=== PATIENT | female | born 1985 | race African-American/Black ===

== ENCOUNTER 2016-11-05 12:18 | Emergency (ER) | payer MEDICAID ==
[2016-11-05] MEDS ORDERED: ASPIRIN 81 MG TABLET, CHEWABLE PO ONE (12:48)
--- NOTE | 2016-11-05 12:53 | ER Document Report ---
ED Medical Screen (RME) - General Chief Complaint: Chest Pain Stated Complaint: CHEST PAIN Time Seen by Provider: 11/05/16 12:41 Notes: The patient is a 30-year-old female, past medical history bipolar, persistent tachycardia, ?Taki[place] arteritis?, presents with 2 days of left upper chest pain that is constant. She had a syncopal episode 2 days ago that lasted a few seconds. Denies fevers, shortness of breath, leg swelling, nausea, vomiting or numbness. PE: Tachycardic, Lungs CTAB, no leg swelling I have greeted and performed a rapid initial assessment of this patient. A comprehensive ED assessment and evaluation of the patient, analysis of test results and completion of the medical decision making process will be conducted by additional ED providers. TRAVEL OUTSIDE OF THE [place] IN LAST 30 DAYS: No - Related Data Allergies/Adverse Reactions: tramadol [Tramadol] Allergy (Verified 09/04/15 07:23) Past Medical History - Social History Frequency of alcohol use: None Drug Abuse: None - Past Medical History Cardiac Medical History: Reports: Hx Hypertension Renal/ Medical History: Reports: Hx Ovarian Cysts. Denies: Hx Peritoneal Dialysis Psychiatric Medical History: Reports: Hx Attention Deficit Hyperactivity Disorder, Hx Bipolar Disorder Past Surgical History: Reports: Hx Gynecologic Surgery - ovarian cyst removed - Immunizations Hx Diphtheria, Pertussis, Tetanus Vaccination: No Physical Exam - Vital signs Vitals: Temp Pulse Resp BP Pulse Ox 98.1 F 103 H 16 175/70 H 99 11/05/16 12:29 11/05/16 12:11/05/16 12:11/05/16 12:29 11/05/16 12:29 Course - Vital Signs Vital signs: Temp Pulse Resp BP Pulse Ox 98.1 F 103 H 16 175/70 H 99 11/05/16 12:29 11/05/16 12:29 11/05/16 12:29 11/05/16 12:29 11/05/16 12:29
[2016-11-05 13:13] LABS: ABSOLUTE BASOPHILS # (AUTO) 0.1 10^3/uL (0.0-0.2); ABSOLUTE LYMPHOCYTES (AUTO) 3.2 10^3/uL (0.5-4.7); ABSOLUTE MONOCYTES (AUTO) 0.7 10^3/uL (0.1-1.4); BASOPHILS % (AUTO) 0.7 % (0-2); EOSINOPHILS % (AUTO) 0.2 % (0-6); HEMATOCRIT 32.2 % (36.0-47.0); HEMOGLOBIN 10.7 g/dL (12.0-15.5); HGB HCT DIFFERENCE -0.1; LYMPHOCYTES % (AUTO) 40.3 % (13-45); MEAN CORPUSCULAR HEMOGLOBIN 28.7 pg (27.0-33.4); MEAN CORPUSCULAR HGB CONC 33.3 g/dL (32.0-36.0); MEAN CORPUSCULAR VOLUME 86 fl (80-97); MONOCYTES % (AUTO) 8.9 % (3-13); RED BLOOD COUNT 3.74 10^6/uL (3.72-5.28); RED CELL DISTRIBUTION WIDTH 14.3 % (11.5-14.0); SEGMENTED NEUTROPHILS % (AUTO) 49.9 % (42-78)
--- NOTE | 2016-11-05 13:34 | RADIOLOGY REPORT (SQ) ---
EXAM DESCRIPTION: CHEST PA/LAT COMPLETED DATE/TIME: 11/05/2016 1:18 pm REASON FOR STUDY: chest pain COMPARISON: None. TECHNIQUE: Frontal and lateral radiographic views of the chest acquired. NUMBER OF VIEWS: Two view. LIMITATIONS: None. FINDINGS: LUNGS AND PLEURA: No opacities, masses or pneumothorax. No pleural effusion. MEDIASTINUM AND HILAR STRUCTURES: No masses or contour abnormalities. HEART AND VASCULAR STRUCTURES: Heart normal size. No evidence for failure. BONES: No acute findings. HARDWARE: None in the chest. OTHER: No other significant finding. IMPRESSION: NO SIGNIFICANT RADIOGRAPHIC FINDING IN THE CHEST. TECHNICAL DOCUMENTATION: JOB ID: [id number] [employer]- All Rights Reserved
[2016-11-05 13:43] LABS: ALANINE AMINOTRANSFERASE 27 U/L (9-52); ALBUMIN 4.7 g/dL (3.5-5.0); ALKALINE PHOSPHATASE 69 U/L (38-126); ANION GAP 19 (5-19); ASPARTATE AMINO TRANSFERASE 36 U/L (14-36); BILIRUBIN,DIRECT 0.4 mg/dL (0.0-0.4); BILIRUBIN,TOTAL 0.6 mg/dL (0.2-1.3); BLOOD UREA NITROGEN 7 mg/dL (7-20); CALCIUM 9.7 mg/dL (8.4-10.2); CARBON DIOXIDE 20 mmol/L (22-30); CHLORIDE 104 mmol/L (98-107); CREATINE KINASE 964 U/L (30-135); CREATININE RESULT 0.64 mg/dL (0.52-1.25); GLUCOSE 76 mg/dL (75-110); LIPASE 73.4 U/L (23-300); POTASSIUM 3.2 mmol/L (3.6-5.0); SODIUM 142.7 mmol/L (137-145); TOTAL PROTEIN 9.5 g/dL (6.3-8.2)
[2016-11-05 13:55] LABS: TROPONIN I < 0.012 ng/mL
--- NOTE | 2016-11-05 14:02 | ER Document Report ---
ED General - General Chief Complaint: Chest Pain Stated Complaint: CHEST PAIN Time Seen by Provider: 11/05/16 12:41 Mode of Arrival: Ambulatory Information source: Patient Notes: 30 yo female non smoker, vapes, no drugs, no elcohol, non hormone user, non htn , non dm, normal weight, non hyperlipidemic c/o presycopal episode on friday at 6 pm, felt lightheaded, about to pass out, saw spots, blackness, couldn't breath , chest was tight up into her throat, throat got tight, legs got heavy-friends caught her and sat her in the car, put seat back down, elevated legs. put cold towel around head and neck, chest. 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 garcia sending her to hotel reservationist (no eval yet), and to rhuematologist- Lion, for takayasu arteritis. c/o constant retrosternal central to left chest pain radiates into upper left back and left arm since waking up on friday, still present, no change with the aspirin. Dizzy episodes when she gets up or in the evening daily. FMHx: no CAD, HTN, or DM. Surgeries: one oophorectomy for ovarian cyst. No cough or fever. Symptoms started long after she had already been on restoril, ritalin, prazosin (nightly) , buspar and topomax. New rx Vraylar, no change in symptoms.She is supposed to have a echocardiogram and holter monitor but her medical insurance won't pay for all of it. TRAVEL OUTSIDE OF THE [place] IN LAST 30 DAYS: No - Related Data Allergies/Adverse Reactions: tramadol [Tramadol] Allergy (Verified 09/04/15 07:23) Past Medical History - General Information source: Patient - Social History Smoking Status: Never Smoker Frequency of alcohol use: None Drug Abuse: None Lives with: Family Family History: Reviewed & Not Pertinent Patient has suicidal ideation: No Patient has homicidal ideation: No - Past Medical History Cardiac Medical History: Reports: Hx Hypertension Renal/ Medical History: Reports: Hx Ovarian Cysts. Denies: Hx Peritoneal Dialysis Psychiatric Medical History: Reports: Hx Attention Deficit Hyperactivity Disorder, Hx Bipolar Disorder Past Surgical History: Reports: Hx Gynecologic Surgery - oophorectomy for ovarian cyst - Immunizations Hx Diphtheria, Pertussis, Tetanus Vaccination: No Review of Systems - Review of Systems Constitutional: No symptoms reported EENT: No symptoms reported Cardiovascular: See HPI Respiratory: No symptoms reported Gastrointestinal: No symptoms reported Genitourinary: No symptoms reported Female Genitourinary: No symptoms reported Musculoskeletal: No symptoms reported Skin: No symptoms reported Hematologic/Lymphatic: No symptoms reported Neurological/Psychological: See HPI Physical Exam - Vital signs Vitals: Temp Pulse Resp BP Pulse Ox 98.1 F 103 H 16 175/70 H 99 11/05/16 12:29 11/05/16 12:29 11/05/16 12:29 11/05/16 12:29 11/05/16 12:29 Interpretation: Normal - General General appearance: Appears well, Alert In distress: None - HEENT Head: Normocephalic, Atraumatic Eyes: Normal Pupils: PERRL Pharynx: Normal Neck: Supple. No: Lymphadenopathy, Thyromegally - Respiratory Respiratory status: No respiratory distress Chest status: Nontender Breath sounds: Normal Chest palpation: Normal - Cardiovascular Rhythm: Regular Heart sounds: Normal auscultation Murmur: No Notes: pulse to 102 when stands at bedside, some dizziness, no nystagmus - Abdominal Inspection: Normal Distension: No distension Bowel sounds: Normal Tenderness: Nontender. No: Tender Organomegaly: No organomegaly - Back Back: Normal, Nontender. No: CVA tenderness - Extremities General upper extremity: Normal inspection, Nontender, Normal color, Normal ROM , Normal temperature General lower extremity: Normal inspection, Nontender, Normal color, Normal ROM , Normal temperature, Normal weight bearing. No: Chloe's sign - Neurological Neuro grossly intact: Yes Cognition: Normal Orientation: AAOx4 Shola Coma Scale Eye Opening: Spontaneous Shola Coma Scale Verbal: Oriented [place] Coma Scale Motor: Obeys Commands [place] Coma Scale Total: 15 Speech: Normal Motor strength normal: LUE, RUE, LLE, RLE Sensory: Normal - Psychological Associated symptoms: Normal affect, Normal mood, Tearful - scared - Skin Skin Temperature: Warm Skin Moisture: Dry Skin Color: Normal Skin irregularity: negative: Rash Course - Re-evaluation Re-evalutation: 11/05/16 14:03 pt has trouble swallowing pills, offered her liquid potassium. 11/05/16 16:03 no Changge in her symptoms with IV fluid. She still feels fatigued with dizziness and left-sided retrosternal chest pain that has not changed and has been constant since it started. 11/05/16 16:18 Up to bathroom without dizziness for urinalysis. test is negative, troponin, BNP is negative 11/05/16 17:[address] prince, pt can go home with cardiology referral. 11/05/16 17:59 We will treat for possible gonorrhea and chlamydia pending the STD urinalysis result. 11/05/16 18:09 pt has 1 year history of decreased pulse in left wrist causing lower blood pressures in the left arm, her MD is aware and the cabinet professional as well. BP left arm 103/80 with 1+ radial pulse, 175/85 with 2+ radial pulse, 2+ bilateral DP. dr. prince aware, since it has been that way for a year, she can still f/u with her MD and hotel reservationist. - Vital Signs Vital signs: Temp Pulse Resp BP Pulse Ox 98.1 F 103 H 20 95/76 L 100 11/05/16 12:29 11/05/16 12:29 11/05/16 17:01 11/05/16 17:00 11/05/16 16:00 - Laboratory Result Diagrams: 11/05/16 13:00 11/05/16 13:00 Laboratory results interpreted by me: 11/05/16 11/05/16 11/05/16 13:00 13:00 16:07 Hgb 10.7 L Hct 32.2 L RDW 14.3 H Potassium 3.2 L Carbon Dioxide 20 L Creatine Kinase 964 H Total Protein 9.5 H Urine Protein 30 H Urine Ketones 80 H Urine Blood SMALL H Ur Leukocyte Esterase SMALL H - EKG Interpretation by Me EKG shows normal: Sinus rhythm Rate: Normal Rhythm: NSR When compared to previous EKG there are: No significant change Discharge - Discharge Clinical Impression: chronic anemia, hypokalemia, Dizziness, Trichomoniasis Chest pain Qualifiers: Chest pain type: unspecified Qualified Code(s): R07.9 - Chest pain, unspecified Condition: Stable Disposition: HOME, SELF-CARE Instructions: Chest Pain of Unclear Cause ([facility]), Hypokalemia ([facility]), Anemia ([facility] ), Dizziness ([facility]), Trichomonas Infection ([facility]), Metronidazole ([facility]), Rocephin ( [facility]), Azithromycin ([facility]) Additional Instructions: eat a banana daily see the hotel reservationist and get the echocardiogram and holter monitor that your provider wants you to have to er if worse call tomorrow for the gonorrhea and chlamydia std test result multivitamin daily partner needs tx for trichomonis infection Please complete the patient satisfaction survey if you get one, and return it.. If you do not receive a survey, then you can go to the [facility] website, [email or web address] and place your comments about your very good care. Thank you very much. It was a pleasure being your medical provider today. Referrals: YOUSUF HARMAN MD [EMERITUS] - 11/06/16
[2016-11-05] MEDS ORDERED: POTASSIUM CHLORIDE 20 MEQ/15 ML UDCUP PO ONE (14:21)
[2016-11-05] MEDS ORDERED: NORMAL SALINE 1000 ML 1,000 ML IV ONE (14:46)
[2016-11-05 16:33] LABS: APPEARANCE,URINE SLIGHTLY-CLOUDY; BILIRUBIN,URINE NEGATIVE (NEGATIVE); GLUCOSE, URINE NEGATIVE (NEGATIVE); KETONES,URINE 80 mg/dL (NEGATIVE); LEUKOCYTE ESTERASE,URINE SMALL (NEGATIVE); NITRITE,URINE NEGATIVE (NEGATIVE); PROTEIN,URINE 30 mg/dL (NEGATIVE); URINE SPECIFIC GRAVITY 1.013; UROBILINOGEN,URINE NEGATIVE mg/dL (<2.0)
[2016-11-05 16:37] LABS: TRICHOMONAS, URINE PRESENT /HPF
[2016-11-05] MEDS ORDERED: ONDANSETRON 4 MG TAB.RAPDIS PO ONE (16:39)
[2016-11-05] MEDS ORDERED: METRONIDAZOLE 500 MG TABLET PO ONE (16:39)
[2016-11-05] MEDS ORDERED: AZITHROMYCIN 250 MG TABLET PO ONE (17:54)
[2016-11-05] MEDS ORDERED: CEFTRIAXONE INJ 250 MG VIAL IM ONE (17:54)
[2016-11-05 18:19] VITALS: BP 151/81
[2016-11-05 18:47] LABS: CHLAM PCR NOT DETECTED (NOT DETECT)
--- NOTE | 2016-11-05 20:28 | EKG REPORT ---
SEVERITY:- BORDERLINE ECG - SINUS RHYTHM PROBABLE LEFT ATRIAL ABNORMALITY : Confirmed by: Seth Mccarty MD 05-Nov-2016 20:27:34
== END 2016-11-05 18:19 | disposition home or self-care (01) ==
LOC: ER 12:18
DX: R55 Syncope and collapse (principal); R07.89 Other chest pain; D64.9 Anemia, unspecified; E87.6 Hypokalemia; A59.9 Trichomoniasis, unspecified; R13.10 Dysphagia, unspecified; M31.4 Aortic arch syndrome [Takayasu]; I10 Essential (primary) hypertension; F90.9 Attention-deficit hyperactivity disorder, unspecified type; F31.9 Bipolar disorder, unspecified; Z79.899 Other long term (current) drug therapy; Z88.5 Allergy status to narcotic agent; R53.83 Other fatigue
CPT/HCPCS: 93005; 99285; 96372; 96360; 36415; 87086; 82550; 83690; 84703; 85025; 80053; 81001; 84484; 87491; 87591; 83880; 71020; 93010; Q0144; S0119; J3490 ×2; J7030; J0696

== ENCOUNTER 2017-03-26 11:23 | Emergency (ER) | payer OTHER ==
--- NOTE | 2017-03-26 11:46 | ER Document Report ---
ED General - General Chief Complaint: Dizziness Stated Complaint: DIZZINESS Time Seen by Provider: 03/26/17 11:40 Mode of Arrival: Ambulatory Information source: Patient Notes: 31-year-old female history of tachycardia presents with complaints of palpitations not feeling well feel dizzy lightheaded. Patient was concerned her blood pressure low at 110/52 TRAVEL OUTSIDE OF THE [place] IN LAST 30 DAYS: No - HPI Onset: Other Onset/Duration: Intermittent Quality of pain: No pain Severity: Mild Pain Level: Denies Associated symptoms: Other Exacerbated by: Denies Relieved by: Denies Similar symptoms previously: Yes Recently seen / treated by doctor: Yes - Patient has had recent echo and recent Holter monitor by cardiology - Related Data Allergies/Adverse Reactions: tramadol [Tramadol] Allergy (Verified 09/04/15 07:23) Past Medical History - Social History Smoking Status: Never Smoker Cigarette use (# per day): No Chew tobacco use (# tins/day): No Smoking Education Provided: No Frequency of alcohol use: None Drug Abuse: None Family History: Reviewed & Not Pertinent Patient has suicidal ideation: No Patient has homicidal ideation: No - Past Medical History Cardiac Medical History: Reports: Hx Hypertension Renal/ Medical History: Reports: Hx Ovarian Cysts. Denies: Hx Peritoneal Dialysis Psychiatric Medical History: Reports: Hx Attention Deficit Hyperactivity Disorder, Hx Bipolar Disorder Past Surgical History: Reports: Hx Gynecologic Surgery - oophorectomy for ovarian cyst - Immunizations Hx Diphtheria, Pertussis, Tetanus Vaccination: No Review of Systems - Review of Systems Notes: REVIEW OF SYSTEMS: CONSTITUTIONAL : Denies fever, chills, or sweats. Denies recent illness. EENT: Denies eye, ear, throat, or mouth pain or symptoms. Denies nasal or sinus congestion or discharge. Denies throat, tongue, or mouth swelling or difficulty swallowing. CARDIOVASCULAR: Admits to palpitations RESPIRATORY: Denies cough, cold, or chest congestion. Denies shortness of breath, difficulty breathing, or wheezing. GASTROINTESTINAL: Denies abdominal pain or distention. Denies nausea, vomiting , or diarrhea. Denies blood in vomitus, stools, or per rectum. Denies black, tarry stools. Denies constipation. GENITOURINARY: Denies difficulty urinating, painful urination, burning, frequency, blood in urine, or discharge. FEMALE GENITOURINARY: Denies vaginal bleeding, heavy or abnormal periods, irregular periods. Denies vaginal discharge or odor. MUSCULOSKELETAL: Denies back or neck pain or stiffness. Denies joint pain or swelling. SKIN: Denies rash, lesions or sores. HEMATOLOGIC : Denies easy bruising or bleeding. LYMPHATIC: Denies swollen, enlarged glands. NEUROLOGICAL: Admits to dizziness PSYCHIATRIC: Denies anxiety or stress. Denies depression, suicidal ideation, or homicidal ideation. ALL OTHER SYSTEMS REVIEWED AND NEGATIVE. PHYSICAL EXAMINATION: GENERAL: Well-appearing, well-nourished and in no acute distress. HEAD: Atraumatic, normocephalic. EYES: Pupils equal round and reactive to light, extraocular movements intact, conjunctiva are normal. ENT: Nares patent, oropharynx clear without exudates. Moist mucous membranes. NECK: Normal range of motion, supple without lymphadenopathy LUNGS: Breath sounds clear to auscultation bilaterally and equal. No wheezes rales or rhonchi. HEART: Tachycardia which patient states is her baseline ABDOMEN: Soft, nontender, nondistended abdomen. No guarding, no rebound. No masses appreciated. Female : deferred Musculoskeletal: Normal range of motion, no pitting or edema. No cyanosis. NEUROLOGICAL: Cranial nerves grossly intact. Normal speech, normal gait. Normal sensory, motor exams PSYCH: Normal mood, normal affect. SKIN: Warm, Dry, normal turgor, no rashes or lesions noted. Dictation was performed using [employer] voice recognition software Physical Exam - Vital signs Vitals: Temp Pulse Resp BP Pulse Ox 98.3 F 122 H 20 164/77 H 98 03/26/17 11:24 03/26/17 11:24 03/26/17 11:24 03/26/17 11:24 03/26/17 11:24 Course - Re-evaluation Re-evalutation: 03/26/17 13:37 pts heart rate improved to 103 on its own while i was in the room, pt overall looks well is in no distress, she has had a significant work up and has been normal by cardiology, no tsh has been ordered i nthe past and i did check this which was normal I will dc home with follow up with cardio After performing a Medical Screening Examination, I estimate there is LOW risk for INTRACRANIAL HEMORRHAGE, ISCHEMIC CVA, MALIGNANT DYSRHYTHMIA, ACUTE CORONARY SYNDROME, MENINGITIS, PULMONARY EMBOLISM, or SEPSIS thus I consider the discharge disposition reasonable. I have reevaluated this patient multiple times and no significant life threatening changes are noted. The patient and I have discussed the diagnosis and risks, and we agree with discharging home with close follow-up with the understanding that symptoms and presentations can change. We also discussed returning to the Emergency Department immediately if new or worsening symptoms occur. We have discussed the symptoms which are most concerning (e.g., changing or worsening pain, weakness, vomiting, fever) that necessitate immediate return. - Vital Signs Vital signs: Temp Pulse Resp BP Pulse Ox 98.3 F 110 H 20 164/77 H 98 03/26/17 11:25 03/26/17 11:41 03/26/17 11:24 03/26/17 11:25 03/26/17 11:41 - Laboratory Result Diagrams: 03/26/17 12:00 03/26/17 12:00 Laboratory results interpreted by me: 03/26/17 03/26/17 12:00 12:00 RDW 14.2 H Plt Count 472 H Sodium 146.3 H Carbon Dioxide 21 L Total Protein 9.6 H Discharge - Discharge Clinical Impression: Dizziness, Tachycardia Condition: Stable Disposition: HOME, SELF-CARE Instructions: Sinus Tachycardia ([facility]) Additional Instructions: Follow up with your physician tomorrow for further care or return to the ED IMMEDIATELY if symptoms worsen or new concerns occur. If you cannot afford to follow up with your primary care physician a list of low cost clinics have been provided at the end of your discharge papers as well.
[2017-03-26 12:07] LABS: ABSOLUTE BASOPHILS # (AUTO) 0.1 10^3/uL (0.0-0.2); ABSOLUTE LYMPHOCYTES (AUTO) 3.5 10^3/uL (0.5-4.7); ABSOLUTE MONOCYTES (AUTO) 0.5 10^3/uL (0.1-1.4); BASOPHILS % (AUTO) 1.3 % (0-2); EOSINOPHILS % (AUTO) 0.3 % (0-6); HEMATOCRIT 36.6 % (36.0-47.0); HEMOGLOBIN 12.5 g/dL (12.0-15.5); HGB HCT DIFFERENCE 0.9; LYMPHOCYTES % (AUTO) 43.4 % (13-45); MEAN CORPUSCULAR HEMOGLOBIN 29.4 pg (27.0-33.4); MEAN CORPUSCULAR HGB CONC 34.2 g/dL (32.0-36.0); MEAN CORPUSCULAR VOLUME 86 fl (80-97); MONOCYTES % (AUTO) 5.8 % (3-13); RED BLOOD COUNT 4.26 10^6/uL (3.72-5.28); RED CELL DISTRIBUTION WIDTH 14.2 % (11.5-14.0); SEGMENTED NEUTROPHILS % (AUTO) 49.2 % (42-78); WHITE BLOOD COUNT 8.1 10^3/uL (4.0-10.5)
[2017-03-26 12:43] LABS: ALANINE AMINOTRANSFERASE 27 U/L (9-52); ALBUMIN 4.9 g/dL (3.5-5.0); ALKALINE PHOSPHATASE 75 U/L (38-126); ANION GAP 18 (5-19); ASPARTATE AMINO TRANSFERASE 20 U/L (14-36); BILIRUBIN,DIRECT 0.3 mg/dL (0.0-0.4); BILIRUBIN,TOTAL 0.4 mg/dL (0.2-1.3); BLOOD UREA NITROGEN 18 mg/dL (7-20); CALCIUM 9.5 mg/dL (8.4-10.2); CARBON DIOXIDE 21 mmol/L (22-30); CHLORIDE 107 mmol/L (98-107); CREATININE RESULT 0.74 mg/dL (0.52-1.25); GLUCOSE 89 mg/dL (75-110); SODIUM 146.3 mmol/L (137-145); TOTAL PROTEIN 9.6 g/dL (6.3-8.2)
[2017-03-26 12:59] LABS: FREE T3 4.06 pg/mL (2.77-5.27)
[2017-03-26 13:13] LABS: THYROID STIMULATING HORMONE 2.08 uIU/mL (0.47-4.68)
[2017-03-26 13:54] VITALS: BP 140/65
--- NOTE | 2017-03-26 19:41 | EKG REPORT ---
SEVERITY:- ABNORMAL ECG - SINUS TACHYCARDIA PROBABLE LEFT VENTRICULAR HYPERTROPHY : Confirmed by: Brynn Chung MD 26-Mar-2017 19:40:47
== END 2017-03-26 13:45 | disposition home or self-care (01) ==
LOC: ER 11:23
DX: R42 Dizziness and giddiness (principal); R00.0 Tachycardia, unspecified
CPT/HCPCS: 36415; 80053; 84439; 84443; 84481; 85025; 93005; 93010; 99284

== ENCOUNTER 2018-04-02 15:55 | Emergency (ER) | payer OTHER ==
[2018-04-02] MEDS ORDERED: NORMAL SALINE 1000 ML 1,000 ML IV ONE (16:39)
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
--- NOTE | 2018-04-02 19:13 | RADIOLOGY REPORT (SQ) ---
EXAM DESCRIPTION: CT HEAD WITHOUT COMPLETED DATE/TIME: 04/02/2018 6:59 pm REASON FOR STUDY: headache dizziness nausea COMPARISON: 09/04/2015 TECHNIQUE: Axial images acquired through the brain without intravenous contrast. Images reviewed wi th bone, brain and subdural windows. Additional sagittal and coronal reconstructions were generated. Images stored on PACS. All CT scanners at this facility use dose modulation, iterative reconstruction, and/or weight based d osing when appropriate to reduce radiation dose to as low as reasonably achievable (ALARA). [facility]: Dose Right [facility]: CareDose [facility]: Dose Right [facility]: Teradose 4D [facility]: Smart Discovery Machine RADIATION DOSE: CT Rad equipment meets quality standard of care and radiation dose reduction techniq ues were employed. CTDIvol: 53.2 mGy. DLP: 1044 mGy-cm. mGy. LIMITATIONS: None. FINDINGS: VENTRICLES: Normal size and contour. CEREBRUM: No masses. No hemorrhage. No midline shift. No evidence for acute infarction. Normal gra y/white matter differentiation. No areas of low density in the white matter. CEREBELLUM: No masses. No hemorrhage. No alteration of density. No evidence for acute infarction. EXTRAAXIAL SPACES: No fluid collections. No masses. ORBITS AND GLOBE: No intra- or extraconal masses. Normal contour of globe without masses. CALVARIUM: No fracture. PARANASAL SINUSES: No fluid or mucosal thickening. SOFT TISSUES: No mass or hematoma. OTHER: No other significant finding. IMPRESSION: NORMAL BRAIN CT WITHOUT CONTRAST. EVIDENCE OF ACUTE STROKE: NO. COMMENT: Quality ID # [id number]: Final reports with documentation of one or more dose reduction techniques (e.g., Automated exposure control, adjustment of the mA and/or kV according to patient size, use of iterative reconstruction technique) TECHNICAL DOCUMENTATION: JOB ID: [id number] [employer]- All Rights Reserved Reading location - IP/workstation name: [email or web address]
[2018-04-02 19:16] LABS: APPEARANCE,URINE SLIGHTLY-CLOUDY; BILIRUBIN,URINE NEGATIVE (NEGATIVE); COLOR,URINE YELLOW; GLUCOSE, URINE NEGATIVE (NEGATIVE); KETONES,URINE TRACE mg/dL (NEGATIVE); LEUKOCYTE ESTERASE,URINE NEGATIVE (NEGATIVE); NITRITE,URINE NEGATIVE (NEGATIVE); PROTEIN,URINE NEGATIVE (NEGATIVE); URINE SPECIFIC GRAVITY 1.011; UROBILINOGEN,URINE NEGATIVE mg/dL (<2.0)
[2018-04-02 19:39] LABS: URINE AMPHETAMINES SCREEN UNCONFIRMED POSITIVE; URINE BARBITURATES SCREEN NEGATIVE; URINE BENZODIAZEPINES SCREEN NEGATIVE; URINE COCAINE SCREEN NEGATIVE; URINE MARIJUANA (THC) SCREEN NEGATIVE; URINE METHADONE SCREEN NEGATIVE; URINE PHENCYCLIDINE SCREEN NEGATIVE
[2018-04-02 19:52] LABS: ABSOLUTE BASOPHILS # (AUTO) 0.1 10^3/uL (0.0-0.2); ABSOLUTE LYMPHOCYTES (AUTO) 4.1 10^3/uL (0.5-4.7); ABSOLUTE MONOCYTES (AUTO) 0.3 10^3/uL (0.1-1.4); ABSOLUTE NEUT (AUTO) 3.6 10^3/uL (1.7-8.2); BASOPHILS % (AUTO) 1.1 % (0-2); EOSINOPHILS % (AUTO) 0.5 % (0-6); HEMATOCRIT 32.9 % (36.0-47.0); HEMOGLOBIN 11.1 g/dL (12.0-15.5); LYMPHOCYTES % (AUTO) 50.5 % (13-45); MEAN CORPUSCULAR HEMOGLOBIN 28.8 pg (27.0-33.4); MEAN CORPUSCULAR HGB CONC 33.7 g/dL (32.0-36.0); MEAN CORPUSCULAR VOLUME 86 fl (80-97); PLATELET COUNT 396 10^3/uL (150-450); RED BLOOD COUNT 3.85 10^6/uL (3.72-5.28); RED CELL DISTRIBUTION WIDTH 14.9 % (11.5-14.0); SEGMENTED NEUTROPHILS % (AUTO) 43.9 % (42-78); TOTAL CELLS COUNTED % (AUTO) 100 %; WHITE BLOOD COUNT 8.2 10^3/uL (4.0-10.5)
[2018-04-02 20:13] LABS: ALANINE AMINOTRANSFERASE 16 U/L (9-52); ALBUMIN 4.6 g/dL (3.5-5.0); ALKALINE PHOSPHATASE 53 U/L (38-126); ANION GAP 12 (5-19); ASPARTATE AMINO TRANSFERASE 26 U/L (14-36); BILIRUBIN,DIRECT 0.4 mg/dL (0.0-0.4); BILIRUBIN,TOTAL 0.6 mg/dL (0.2-1.3); BLOOD UREA NITROGEN 8 mg/dL (7-20); CALCIUM 9.1 mg/dL (8.4-10.2); CARBON DIOXIDE 29 mmol/L (22-30); CHLORIDE 101 mmol/L (98-107); GLUCOSE 76 mg/dL (75-110); POTASSIUM 3.3 mmol/L (3.6-5.0); SODIUM 142.3 mmol/L (137-145); TOTAL PROTEIN 8.6 g/dL (6.3-8.2)
[2018-04-02 20:23] VITALS: BP 148/69
== END 2018-04-02 21:14 | disposition home or self-care (01) ==
LOC: ER 15:55
DX: R42 Dizziness and giddiness (principal); R51 Headache; I10 Essential (primary) hypertension; F90.1 Attention-deficit hyperactivity disorder, predominantly hyperactive type; F31.9 Bipolar disorder, unspecified; M54.2 Cervicalgia; M79.601 Pain in right arm; M79.602 Pain in left arm; M79.604 Pain in right leg; M79.605 Pain in left leg; V43.52XA Car driver injured in collision with other type car in traffic accident, initial encounter; Y92.410 Unspecified street and highway as the place of occurrence of the external cause
CPT/HCPCS: 36415; 70450; 80053; 80307; 81001; 81025; 85025; 96372; 99284

== ENCOUNTER 2018-06-09 18:16 | Emergency (ER) | payer SELFPAY ==
[2018-06-09] MEDS ORDERED: TETRACAINE HCL 0.5% OPH SOLN 4 ML OU ONE (18:39)
[2018-06-09] MEDS ORDERED: POLYMYXIN B SULFATE/TMP OPH SOLN (10 ML/ER DISP) OD ONE (22:23)
--- NOTE | 2018-06-09 22:27 | ER Document Report ---
HPI - HPI Patient complains to provider of: Eye pain Time Seen by Provider: 06/09/18 18:38 Pain Level: 5 Context: 32-year-old female with no past medical history presents to the emergency department after gluing her R eyelid shuT getting eyelashes. She states at the business where it was done they applied something to her eyes and it was still shot. At one point she said her eyeball was entrapped by glue. She went home and tried to put nail estonian remover on it and then return to the nail shop they would put some more of the material on it. She then came to the emergency department. She complains of severe eye pain, blurred vision, and pain with eye movement. - CONSTITUTIONAL Constitutional: DENIES: Fever, Chills - EENT EENT: REPORTS: Eye problems - right eye - REPRODUCTIVE Reproductive: DENIES: : Past Medical History - Social History Smoking Status: Never Smoker Frequency of alcohol use: None Drug Abuse: None Family History: Reviewed & Not Pertinent Patient has suicidal ideation: No Patient has homicidal ideation: No - Past Medical History Cardiac Medical History: Reports: Hx Atrial Fibrillation, Hx Hypertension Renal/ Medical History: Reports: Hx Ovarian Cysts. Denies: Hx Peritoneal Dialysis Psychiatric Medical History: Reports: Hx Attention Deficit Hyperactivity Disorder, Hx Bipolar Disorder Past Surgical History: Reports: Hx Gynecologic Surgery - oophorectomy for ovarian cyst - Immunizations Hx Diphtheria, Pertussis, Tetanus Vaccination: No Vertical Provider Document - CONSTITUTIONAL Agree With Documented VS: Yes Notes: PHYSICAL EXAMINATION: Reviewed vital signs and charting by RN GENERAL: Alert, interacts well. No acute distress. HEAD: Normocephalic, atraumatic. EYES: Pupils equal, round, and reactive to light. Extraocular movements intact. Right eye erythematous. Floor seen stain uptake at the 3 o'clock position of the right eye approximately 2 mm x 2 mm. Floor seen uptake in the medial inferior aspect of the right eye. ENT: Oral mucosa moist, tongue midline. NECK: Full range of motion. Supple. Trachea midline. EXTREMITIES: Moves all 4 extremities spontaneously. No edema, No cyanosis. NEUROLOGICAL: Alert and oriented. Normal speech. PSYCH: Normal affect, normal mood. SKIN: Warm, dry, normal turgor. No rashes or lesions noted. - INFECTION CONTROL TRAVEL OUTSIDE OF THE [place] IN LAST 30 DAYS: No - HEENT HEENT: Atraumatic Course - Re-evaluation Re-evalutation: 06/09/18 23:23 Well-appearing 32-year-old female presents with a corneal abrasion to 6 mm x 2 mm at the 3 o'clock position. Corneal injection also noted. Right eye was irrigated copiously and lid was everted which did not reveal any residual acrylic. 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 Plan is to place her on Polytrim drops OD 4 times per day for 5 days. Patient will get an ophthalmology consult from the emergency department. Patient is safe and stable for discharge with close ophthalmology follow-up. 06/10/18 01:41 06/10/18 01:41 - Vital Signs Vital signs: Temp Pulse Resp BP Pulse Ox 98.4 F 89 16 160/68 H 99 06/09/18 18:32 06/09/18 18:32 06/09/18 18:32 06/09/18 18:32 06/09/18 18:32 Discharge - Discharge Clinical Impression: Right corneal abrasion Qualifiers: Encounter type: initial encounter Qualified Code(s): S05.01XA - Injury of conjunctiva and corneal abrasion without foreign body, right eye, initial encounter Condition: Good Disposition: HOME, SELF-CARE Instructions: Corneal Abrasion ([facility]) Additional Instructions: You have a corneal abrasion. This should improve in the next several days. You should apply the eye drops to the affected eye 3 times daily. Follow-up with ophthalmology at your earliest ability. Return if you have decreased vision, worsening pain, increased drainage from the eye, you notice redness or puffiness around the eye, you develop a fever greater than 101F, or you have any other symptoms that are concerning to you. Referrals: LISS ÁLVAREZ MD [Primary Care Provider] - Follow up as needed JOSE ENRIQUE LICONA MD [ACTIVE STAFF] - Follow up as needed
[2018-06-10 00:05] VITALS: BP 158/64
== END 2018-06-09 23:59 | disposition home or self-care (01) ==
LOC: ER 18:16
DX: S05.01XA Injury of conjunctiva and corneal abrasion without foreign body, right eye, initial encounter (principal); X58.XXXA Exposure to other specified factors, initial encounter; I10 Essential (primary) hypertension
CPT/HCPCS: 99282; J3490 ×2

== ENCOUNTER → 2018-07-17 | Outpatient (CLI) | payer MEDICAID ==
--- NOTE | 2018-07-17 12:18 | RADIOLOGY REPORT (SQ) ---
EXAM DESCRIPTION: T SPINE AP/LAT COMPLETED DATE/TIME: 07/17/2018 11:48 am REASON FOR STUDY: DORSALGIA, UNSPECIFIED M54.9 DORSALGIA, UNSPECIFIED COMPARISON: 02/24/2014 NUMBER OF VIEWS: Two views. TECHNIQUE: AP and lateral radiographic images acquired of the thoracic spine. LIMITATIONS: None. FINDINGS: MINERALIZATION: Normal. ALIGNMENT: Normal. No scoliosis. VERTEBRAE: No fracture or bone lesion. Maintained height, normal segmentation. DISCS: No significant loss of height or significant narrowing. No large osteophytes. HARDWARE: None in the spine. MEDIASTINUM AND SOFT TISSUES: Normal heart size and aortic contour. No soft tissue abnormality. VISUALIZED LUNG SIMMONS: Clear. OTHER: No other significant finding. IMPRESSION: 1. No significant interval changes since the previous examination dated 02/24/2014. No acute osseous findings. TECHNICAL DOCUMENTATION: JOB ID: [id number] [employer]- All Rights Reserved Reading location - IP/workstation name: [email or web address]
== END ==
LOC: OD 11:23
PROVIDERS: ATTEND Nurse Practitioner Family
DX: M54.9 Dorsalgia, unspecified (principal)
CPT/HCPCS: 72070

== ENCOUNTER → 2019-01-19 | Outpatient (CLI) | payer MEDICAID ==
--- NOTE | 2019-01-19 11:34 | RADIOLOGY REPORT (SQ) ---
EXAM DESCRIPTION: LUMBAR SPINE COMPLETE COMPLETED DATE/TIME: 01/19/2019 11:22 am REASON FOR STUDY: PAIN OF FINGER OF RT HAND M54.41 LUMBAGO WITH SCIATICA, RIGHT SIDE M79.644 PAIN IN RIGHT FINGER(S) COMPARISON: 06/30/2013 NUMBER OF VIEWS: Five views including obliques. TECHNIQUE: AP, lateral, oblique, and sacral radiographic images acquired of the lumbar spine. LIMITATIONS: None. FINDINGS: MINERALIZATION: Normal. SEGMENTATION: Normal. No transitional anatomy. ALIGNMENT: Normal. VERTEBRAE: Maintained height. No fracture or worrisome bone lesion. DISCS: Preserved height. No significant osteophytes or end plate irregularity. POSTERIOR ELEMENTS: Pedicles and facets are intact. No pars defect or posterior arch defects. HARDWARE: None in the spine. PARASPINAL SOFT TISSUES: Normal. PELVIS: Intact as visualized. No fractures or worrisome bone lesions. SI joints intact. OTHER: No other significant finding. IMPRESSION: NORMAL 5 VIEW LUMBAR SPINE. TECHNICAL DOCUMENTATION: JOB ID: [id number] [employer]- All Rights Reserved Reading location - IP/workstation name: [email or web address]
--- NOTE | 2019-01-19 11:35 | RADIOLOGY REPORT (SQ) ---
EXAM DESCRIPTION: FINGERS RIGHT COMPLETED DATE/TIME: 01/19/2019 11:22 am REASON FOR STUDY: PAIN OF FINGER OF RT HAND M54.41 LUMBAGO WITH SCIATICA, RIGHT SIDE M79.644 PAIN IN RIGHT FINGER(S) COMPARISON: None. NUMBER OF VIEWS: Three views. TECHNIQUE: AP, lateral, and oblique images acquired of the right third finger. LIMITATIONS: None. FINDINGS: MINERALIZATION: Normal. BONES: No acute fracture or dislocation. No worrisome bone lesions. SOFT TISSUES: No soft tissue swelling. No foreign body. OTHER: No other significant finding. IMPRESSION: NO RADIOGRAPHIC EVIDENCE OF ACUTE INJURY. COMMENT: SITE OF TRAUMA/COMPLAINT MARKED/STAMP COMPLETED: NO. TECHNICAL DOCUMENTATION: JOB ID: [id number] [employer]- All Rights Reserved Reading location - IP/workstation name: [email or web address]
== END ==
LOC: OD 11:08
PROVIDERS: ATTEND Nurse Practitioner Family
DX: M79.644 Pain in right finger(s) (principal); M54.41 Lumbago with sciatica, right side
CPT/HCPCS: 72110

== ENCOUNTER 2019-06-11 10:37 | Observation (INO) | payer MEDICAID, OTHER ==
--- NOTE | 2019-06-11 10:50 | ER Document Report ---
ED Medical Screen (RME) - General Chief Complaint: Dizziness Stated Complaint: DIZZY,FALLING A LOT Time Seen by Provider: 06/11/19 10:47 Primary Care Provider: SELENA NGUYEN DO [Primary Care Provider] - Follow up as needed Notes: 33-year-old female was sent from urgent care due to confusion and not "remembering the dates or filling out paperwork." Patient states she has had dizziness for the past few days which is worse with standing. Pt also states she does not remember what day it is however pt did drive herself from urgent care to ER. No facial droop. No tongue deviation. No pronator drift. Inside Polisher strength equal bilaterally. Upper extremity strength equal bilaterally. Lower extremity strength equal bilaterally. I have greeted and performed a rapid initial assessment of this patient. A comprehensive ED assessment and evaluation of the patient, analysis of test results and completion of the medical decision making process with be conducted by additional ED providers. TRAVEL OUTSIDE OF THE [place] IN LAST 30 DAYS: No - Related Data Allergies/Adverse Reactions: lisinopril Allergy (Verified 05/24/19 14:26) prednisone Allergy (Verified 05/24/19 14:26) tramadol [Tramadol] Allergy (Verified 05/24/19 14:26) Past Medical History - Past Medical History Cardiac Medical History: Reports: Hx Atrial Fibrillation, Hx Hypertension Renal/ Medical History: Reports: Hx Ovarian Cysts. Denies: Hx Peritoneal Dialysis Psychiatric Medical History: Reports: Hx Attention Deficit Hyperactivity Disorder, Hx Bipolar Disorder Past Surgical History: Reports: Hx Gynecologic Surgery - oophorectomy for ovarian cyst - Immunizations Hx Diphtheria, Pertussis, Tetanus Vaccination: No Doctor's Discharge - Discharge Referrals: SELENA NGUYEN DO [Primary Care Provider] - Follow up as needed
[2019-06-11 11:36] LABS: ABSOLUTE BASOPHILS # (AUTO) 0.1 10^3/uL (0.0-0.2); ABSOLUTE LYMPHOCYTES (AUTO) 2.9 10^3/uL (0.5-4.7); ABSOLUTE MONOCYTES (AUTO) 0.7 10^3/uL (0.1-1.4); ABSOLUTE NEUT (AUTO) 3.8 10^3/uL (1.7-8.2); BASOPHILS % (AUTO) 0.8 % (0-2); EOSINOPHILS % (AUTO) 0.2 % (0-6); HEMATOCRIT 36.5 % (36.0-47.0); HEMOGLOBIN 12.6 g/dL (12.0-15.5); LYMPHOCYTES % (AUTO) 38.7 % (13-45); MEAN CORPUSCULAR HEMOGLOBIN 29.3 pg (27.0-33.4); MEAN CORPUSCULAR HGB CONC 34.5 g/dL (32.0-36.0); MEAN CORPUSCULAR VOLUME 85 fl (80-97); MONOCYTES % (AUTO) 9.8 % (3-13); PLATELET COUNT 398 10^3/uL (150-450); RED BLOOD COUNT 4.29 10^6/uL (3.72-5.28); RED CELL DISTRIBUTION WIDTH 14.5 % (11.5-14.0); SEGMENTED NEUTROPHILS % (AUTO) 50.5 % (42-78); TOTAL CELLS COUNTED % (AUTO) 100 %; WHITE BLOOD COUNT 7.4 10^3/uL (4.0-10.5)
--- NOTE | 2019-06-11 11:48 | RADIOLOGY REPORT (SQ) ---
EXAM DESCRIPTION: CT HEAD WITHOUT COMPLETED DATE/TIME: 06/11/2019 11:34 am REASON FOR STUDY: confusion, dizziness COMPARISON: 04/02/2018 TECHNIQUE: Axial images acquired through the brain without intravenous contrast. Images reviewed wi th bone, brain and subdural windows. Additional sagittal and coronal reconstructions were generated. Images stored on PACS. All CT scanners at this facility use dose modulation, iterative reconstruction, and/or weight based d osing when appropriate to reduce radiation dose to as low as reasonably achievable (ALARA). [facility]: Dose Right [facility]: CareDose [facility]: Dose Right [facility]: Teradose 4D [facility]: [email or web address] RADIATION DOSE: CT Rad equipment meets quality standard of care and radiation dose reduction techniq ues were employed. CTDIvol: 53.2 mGy. DLP: 1097 mGy-cm. mGy. LIMITATIONS: None. FINDINGS: VENTRICLES: Normal size and contour. CEREBRUM: No masses. No hemorrhage. No midline shift. No evidence for acute infarction. Normal gra y/white matter differentiation. No areas of low density in the white matter. CEREBELLUM: No masses. No hemorrhage. No alteration of density. No evidence for acute infarction. EXTRAAXIAL SPACES: No fluid collections. No masses. ORBITS AND GLOBE: No intra- or extraconal masses. Normal contour of globe without masses. CALVARIUM: No fracture. PARANASAL SINUSES: No fluid or mucosal thickening. SOFT TISSUES: No mass or hematoma. OTHER: No other significant finding. IMPRESSION: NO ACUTE INTRACRANIAL IMAGING FINDINGS. EVIDENCE OF ACUTE STROKE: NO. COMMENT: Quality ID # [id number]: Final reports with documentation of one or more dose reduction techniques (e.g., Automated exposure control, adjustment of the mA and/or kV according to patient size, use of iterative reconstruction technique) TECHNICAL DOCUMENTATION: JOB ID: [id number] [employer]- All Rights Reserved Reading location - IP/workstation name: [email or web address]
[2019-06-11 11:58] LABS: ALBUMIN 4.8 g/dL (3.5-5.0); ALKALINE PHOSPHATASE 53 U/L (38-126); ANION GAP 14 (5-19); ASPARTATE AMINO TRANSFERASE 22 U/L (14-36); BILIRUBIN,DIRECT 0.3 mg/dL (0.0-0.4); BILIRUBIN,TOTAL 0.3 mg/dL (0.2-1.3); BLOOD UREA NITROGEN 29 mg/dL (7-20); CALCIUM 9.8 mg/dL (8.4-10.2); CARBON DIOXIDE 29 mmol/L (22-30); CHLORIDE 97 mmol/L (98-107); GLUCOSE 100 mg/dL (75-110); TOTAL PROTEIN 9.1 g/dL (6.3-8.2)
[2019-06-11 11:59] LABS: ALCOHOL < 10 mg/dL (NONE DETECTED)
[2019-06-11 12:01] LABS: POTASSIUM 2.9 mmol/L (3.6-5.0)
[2019-06-11] MEDS ORDERED: NORMAL SALINE 1000 ML 1,000 ML IV ONE (12:17)
--- NOTE | 2019-06-11 12:22 | ER Document Report ---
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 She states that her son told her she fell yesterday and she does not remember falling. She does not recall any syncopal episodes. She denies any aches or pains anywhere. She just admits to feeling foggy and somewhat altered. She denies taking any additional medications, no changes in her medicines recently. She denies any drugs or alcohol. TRAVEL OUTSIDE OF THE [place] IN LAST 30 DAYS: No - Related Data Allergies/Adverse Reactions: lisinopril Allergy (Verified 05/24/19 14:26) prednisone Allergy (Verified 05/24/19 14:26) tramadol [Tramadol] Allergy (Verified 05/24/19 14:26) Past Medical History - Social History Smoking Status: Unknown if Ever Smoked Family History: Reviewed & Not Pertinent Patient has suicidal ideation: No Patient has homicidal ideation: No - Past Medical History Cardiac Medical History: Reports: Hx Atrial Fibrillation, Hx Hypertension Renal/ Medical History: Reports: Hx Ovarian Cysts. Denies: Hx Peritoneal Dialysis Psychiatric Medical History: Reports: Hx Attention Deficit Hyperactivity Disorder, Hx Bipolar Disorder Past Surgical History: Reports: Hx Gynecologic Surgery - oophorectomy for ovarian cyst - Immunizations Hx Diphtheria, Pertussis, Tetanus Vaccination: No Review of Systems - Review of Systems EENT: Blurred vision Neurological/Psychological: Other - Dizziness -: Yes All other systems reviewed and negative Physical Exam - Vital signs Vitals: Temp Pulse Resp BP Pulse Ox 98.4 F 108 H 16 166/68 H 96 06/11/19 10:45 06/11/19 10:45 06/11/19 10:45 06/11/19 10:45 06/11/19 10:45 - General General appearance: Appears well, Alert In distress: None - HEENT Head: Normocephalic, Atraumatic Eyes: Other - Significant horizontal gaze nystagmus appreciated Conjunctiva: Normal Extraocular movements intact: Yes Eyelashes: Normal Pupils: PERRL Ears: Normal External canal: Normal Tympanic membrane: Normal Nasal: Normal Mouth/Lips: Normal Mucous membranes: Normal Pharynx: Normal Neck: Normal - Respiratory Respiratory status: No respiratory distress Chest status: Nontender Breath sounds: Normal Chest palpation: Normal - Cardiovascular Rhythm: Regular Heart sounds: Normal auscultation - Abdominal Inspection: Normal Distension: No distension Bowel sounds: Normal Tenderness: Nontender Organomegaly: No organomegaly - Back Back: Normal, Nontender - Extremities General upper extremity: Normal inspection, Nontender, Normal color, Normal ROM, Normal temperature General lower extremity: Normal inspection, Nontender, Normal color, Normal ROM, Normal temperature, Normal weight bearing. No: Chloe's sign - Neurological Neuro grossly intact: Yes Orientation: Disoriented to time [place] Coma Scale Eye Opening: Spontaneous [place] Coma Scale Verbal: Oriented [place] Coma Scale Motor: Obeys Commands Sh[place] Coma Scale Total: 15 Speech: Other - Slow Cranial nerves: Normal Cerebellar coordination: Other - Normal rapid alternating hand movements, normal [id number], normal [id number] Additional motor exam normals: Other - Extremity strength 4 out of 5 on the left as compared with the right which is 5 out of 5 Sensory: Normal - Psychological Associated symptoms: Other - Flat affect, appears somnolent - Skin Skin Temperature: Warm Skin Moisture: Dry Skin Color: Normal Course - Re-evaluation Re-evalutation: 06/11/19 15:41 Patient found to be hypokalemic with an increased creatinine. Likely explaining her symptoms. She did appear somnolent and drowsy so we attempted to give some Narcan given her history of taking narcotic pain medications and benzodiazepine medicines. Did not seem to perk her up very much. Hospitalist service was contacted for admission. Spoke with Dr. Blancas, she will evaluate the patient in the emergency department for admission. Patient is stable and being monitored at this time. - Vital Signs Vital signs: Temp Pulse Resp BP Pulse Ox 98.4 F 93 16 147/63 H 100 06/11/19 10:45 06/11/19 11:40 06/11/19 11:40 06/11/19 11:40 06/11/19 11:40 - Laboratory Result Diagrams: 06/11/19 11:20 06/11/19 11:20 Laboratory results interpreted by me: 06/11/19 06/11/19 06/11/19 11:20 11:20 14:04 RDW 14.5 H Potassium 2.9 L* Chloride 97 L BUN 29 H Creatinine 2.08 H Est GFR ( Amer) 33 L Est GFR (MDRD) Non-Af 27 L Total Protein 9.1 H Urine Blood MODERATE H Discharge - Discharge Clinical Impression: Hypokalemia, MYRA (acute kidney injury) Condition: Serious Disposition: ADMITTED INPATIENT Admitting Provider: Yonny (Hospitalist) Unit Admitted: Telemetry Referrals: SELENA NGUYEN DO [Primary Care Provider] - Follow up as needed
[2019-06-11] MEDS ORDERED: POTASSIUM CHLORIDE 10 MEQ TABLET.ER PO ONE (12:29)
[2019-06-11 13:46] LABS: PHOSPHORUS 3.2 mg/dL (2.5-4.5)
--- NOTE | 2019-06-11 13:56 | RADIOLOGY REPORT (SQ) ---
EXAM DESCRIPTION: CHEST SINGLE VIEW COMPLETED DATE/TIME: 06/11/2019 1:48 pm REASON FOR STUDY: dizzy, low K COMPARISON: 11/05/2016 EXAM PARAMETERS: NUMBER OF VIEWS: One view. TECHNIQUE: Single frontal radiographic view of the chest acquired. RADIATION DOSE: NA LIMITATIONS: None. FINDINGS: LUNGS AND PLEURA: No opacities, masses or pneumothorax. No pleural effusion. MEDIASTINUM AND HILAR STRUCTURES: No masses. Contour normal. HEART AND VASCULAR STRUCTURES: Heart normal in size. Normal vasculature. BONES: No acute findings. HARDWARE: None in the chest. OTHER: No other significant finding. IMPRESSION: NO ACUTE RADIOGRAPHIC FINDING IN THE CHEST. TECHNICAL DOCUMENTATION: JOB ID: [id number] [employer]- All Rights Reserved Reading location - IP/workstation name: ROB
[2019-06-11] MEDS: POTASSI CL 20 MEQ/50 ML RIDER 20 MEQ/50 ML RTUPB IV SCH ×3 (13:58→18:16)
[2019-06-11 14:23] LABS: APPEARANCE,URINE SLIGHTLY-CLOUDY; BILIRUBIN,URINE NEGATIVE (NEGATIVE); COLOR,URINE YELLOW; GLUCOSE, URINE NEGATIVE (NEGATIVE); KETONES,URINE NEGATIVE (NEGATIVE); PROTEIN,URINE NEGATIVE (NEGATIVE); URINE SPECIFIC GRAVITY 1.013; UROBILINOGEN,URINE NEGATIVE mg/dL (<2.0)
[2019-06-11 14:40] LABS: URINE AMPHETAMINES SCREEN NEGATIVE; URINE BARBITURATES SCREEN NEGATIVE; URINE BENZODIAZEPINES SCREEN NEGATIVE; URINE COCAINE SCREEN NEGATIVE; URINE MARIJUANA (THC) SCREEN NEGATIVE; URINE METHADONE SCREEN NEGATIVE; URINE PHENCYCLIDINE SCREEN NEGATIVE
[2019-06-11] MEDS ORDERED: NALOXONE HCL INJ/PF 0.4 MG/1 ML SDV IV ONE (14:42)
[2019-06-11] MEDS ORDERED: ACETAMINOPHEN 325 MG TABLET PO PRN (16:55)
[2019-06-11] MEDS ORDERED: ZOLPIDEM TARTRATE 5 MG TABLET PO PRN (16:55)
[2019-06-11] MEDS ORDERED: ONDANSETRON 4 MG TAB.RAPDIS PO PRN (16:55)
--- NOTE | 2019-06-11 17:13 | PDOC H&P ---
History of Present Illness Admission Date/PCP: 06/11/19 15:58 SELENA NGUYEN DO Patient complains of: dizzy and weak History of Present Illness: DESTIN ECHOLS is a 33 year old female Presents to the emergency room with complaints of weakness as well as dizziness. She denies any nausea vomiting or diarrhea. She states she was just feeling weak and whilst walking her dog today she felt tired. She also says she has had some problems with her memory Past Medical History Cardiac Medical History: Reports: Hypertension Pulmonary Medical History: Reports: None Musculoskeletal History Note: Takiyatsu arteritis Psychiatric Medical History: Reports: Attention Deficit Hyperactivity Disorder, Bipolar Disorder Past Surgical History Past Surgical History: Reports: None Social History Information Source: Patient Lives with: Other - Son Smoking Status: Unknown if Ever Smoked Electronic Cigarette use?: No Frequency of Alcohol Use: Rare Hx Recreational Drug Use: No - Advance Directive Resuscitation Status: Full Code Family History Family History: Reviewed & Not Pertinent Parental Family History Reviewed: Yes Children Family History Reviewed: Yes Sibling(s) Family History Reviewed.: Yes Medication/Allergy Allergies/Adverse Reactions: lisinopril Allergy (Verified 05/24/19 14:26) prednisone Allergy (Verified 05/24/19 14:26) tramadol [Tramadol] Allergy (Verified 05/24/19 14:26) Review of Systems Constitutional: PRESENT: weakness Cardiovascular: ABSENT: chest pain, dyspnea on exertion, palpitations Gastrointestinal: ABSENT: abdominal pain, diarrhea, nausea, vomiting Musculoskeletal: PRESENT: muscle weakness Psychiatric: PRESENT: anxiety, depression Physical Exam Vital Signs: Temp Pulse Resp BP Pulse Ox 98.4 F 93 16 147/63 H 100 06/11/19 10:45 06/11/19 11:40 06/11/19 11:40 06/11/19 11:40 06/11/19 11:40 Intake & Output 06/10/19 06/11/19 06/12/19 06:59 06:59 06:59 Intake Total 1050 Balance 1050 Weight 77.9 kg General appearance: PRESENT: no acute distress, well-developed, well-nourished Head exam: PRESENT: atraumatic, normocephalic Eye exam: PRESENT: conjunctiva pink, EOMI, PERRLA. ABSENT: scleral icterus Ear exam: PRESENT: normal external ear exam Mouth exam: PRESENT: moist, tongue midline Neck exam: ABSENT: carotid bruit, JVD, lymphadenopathy, thyromegaly Respiratory exam: PRESENT: clear to auscultation penelope. ABSENT: rales, rhonchi, wheezes Cardiovascular exam: PRESENT: RRR. ABSENT: diastolic murmur, rubs, systolic murmur Pulses: PRESENT: normal dorsalis pedis pul Vascular exam: PRESENT: normal capillary refill GI/Abdominal exam: PRESENT: normal bowel sounds, soft. ABSENT: distended, guarding, mass, organolmegaly, rebound, tenderness Rectal exam: PRESENT: deferred Extremities exam: PRESENT: full ROM. ABSENT: calf tenderness, clubbing, pedal edema Neurological exam: PRESENT: alert, awake, oriented to person, oriented to place, oriented to time, oriented to situation, CN II-XII grossly intact. ABSENT: motor sensory deficit Psychiatric exam: PRESENT: appropriate affect, normal mood. ABSENT: homicidal ideation, suicidal ideation Skin exam: PRESENT: dry, intact, warm. ABSENT: cyanosis, rash Results Laboratory Results: 06/11/19 11:20 06/11/19 11:20 06/11/19 06/11/19 06/11/19 11:20 11:20 11:20 WBC 7.4 RBC 4.29 Hgb 12.6 Hct 36.5 MCV 85 MCH 29.3 MCHC 34.5 RDW 14.5 H Plt Count 398 Seg Neutrophils % 50.5 Sodium 139.9 Potassium 2.9 L* Chloride 97 L Carbon Dioxide 29 Anion Gap 14 BUN 29 H Creatinine 2.08 H Est GFR ( Amer) 33 L Glucose 100 Calcium 9.8 Phosphorus Magnesium Total Bilirubin 0.3 AST 22 Alkaline Phosphatase 53 Total Protein 9.1 H Albumin 4.8 Serum HCG, Qual NEGATIVE Urine Color Urine Appearance Urine pH Ur Specific [place] Urine Protein Urine Glucose (UA) Urine Ketones Urine Blood Urine RBC (Auto) 06/11/19 06/11/19 11:20 14:04 WBC RBC Hgb Hct MCV MCH MCHC RDW Plt Count Seg Neutrophils % Sodium Potassium Chloride Carbon Dioxide Anion Gap BUN Creatinine Est GFR ( Amer) Glucose Calcium Phosphorus 3.2 Magnesium 1.7 Total Bilirubin AST Alkaline Phosphatase Total Protein Albumin Serum HCG, Qual Urine Color YELLOW Urine Appearance SLIGHTLY-CLOUDY Urine pH 5.0 Ur Specific [place] 1.013 Urine Protein NEGATIVE Urine Glucose (UA) NEGATIVE Urine Ketones NEGATIVE Urine Blood MODERATE H Urine RBC (Auto) 1 Impressions: Head CT 06/11/19 10:48 IMPRESSION: NO ACUTE INTRACRANIAL IMAGING FINDINGS. EVIDENCE OF ACUTE STROKE: NO. Chest X-Ray 06/11/19 13:15 IMPRESSION: NO ACUTE RADIOGRAPHIC FINDING IN THE CHEST. Assessment and Plan - Diagnosis (1) MYRA (acute kidney injury) Is this a current diagnosis for this admission?: Yes Plan: Patient's creatinine is 2 with a BUN of 29. Her kidney function was normal a few months ago. Patient has been on hydrochlorothiazide as outpatient and is likely explains her azotemia. We will hold the hydrochlorothiazide and replace with intravenous fluids. (2) Hypokalemia Is this a current diagnosis for this admission?: Yes Plan: Hypokalemia is likely secondary to hydrochlorothiazide. Will replace with parenteral and oral potassium and recheck in a.m. - Plan Summary Summary: She will be placed on observation status. She saw her psychiatrist about 2 days ago with no change in her medications Patient did receive naloxone in the emergency room as she was apparently lethargic and this may explain her positive drug screen however patient denies any drug use any she was awake and alert at the time of my exam - Time Time Spent with patient: 25-34 minutes Medications reviewed and adjusted accordingly: Yes Anticipated discharge: Home Within: within 24 hours
[2019-06-11] MEDS ORDERED: INFLUENZA QUAD (6MOS+) 2019-20 VAC 0.5 ML SYR IM ONE (18:46)
[2019-06-11] MEDS ORDERED: DIAZEPAM 2 MG TABLET PO PRN (20:51)
[2019-06-11] MEDS ORDERED: (PENDING PHARMACY ID) (Quetiapine Fumarate [Seroquel] 400 MG) PO SCH (22:00)
[2019-06-11] MEDS ORDERED: OXCARBAZEPINE 600 MG PO SCH (22:00)
[2019-06-11] MEDS ORDERED: ESZOPICLONE 1 MG PO SCH (22:00)
[2019-06-11] MEDS ORDERED: (PENDING PHARMACY ID) (Buspirone Hcl [Buspirone Hcl] 15 MG) PO SCH (22:00)
[2019-06-11] MEDS ORDERED: QUETIAPINE FUMARATE 100 MG TABLET PO SCH (22:00)
--- NOTE | 2019-06-11 22:00 | EKG REPORT ---
SEVERITY:- ABNORMAL ECG - SINUS RHYTHM PROBABLE LEFT ATRIAL ABNORMALITY PROBABLE LEFT VENTRICULAR HYPERTROPHY : Confirmed by: Brynn Chung MD 11-Jun-2019 21:59:39
[2019-06-11] MEDS: BUSPIRONE HCL 10 MG TABLET PO SCH (22:08)
[2019-06-11] MEDS: METOPROLOL TARTRATE 100 MG TABLET PO SCH (22:08)
[2019-06-11] MEDS: POTASSI CL 40 MEQ/D5-1/2NS 1L 40 MEQ/1,000 ML RTUINJ IV PRN (22:30)
[2019-06-12] MEDS: BUSPIRONE HCL 10 MG TABLET PO SCH ×2 (05:16→13:03)
[2019-06-12 08:39] LABS: ANION GAP 9 (5-19); BLOOD UREA NITROGEN 16 mg/dL (7-20); CALCIUM 9.1 mg/dL (8.4-10.2); CARBON DIOXIDE 27 mmol/L (22-30); CHLORIDE 102 mmol/L (98-107); GLUCOSE 88 mg/dL (75-110)
[2019-06-12 08:56] LABS: POTASSIUM 4.1 mmol/L (3.6-5.0)
[2019-06-12] MEDS: POTASSI CL 40 MEQ/D5-1/2NS 1L 40 MEQ/1,000 ML RTUINJ IV PRN (08:58)
[2019-06-12] MEDS: METOPROLOL TARTRATE 100 MG TABLET PO SCH (09:16)
[2019-06-12] MEDS ORDERED: ENOXAPARIN SODIUM INJ 40 MG/0.4 ML DISP.SYRIN SUBCUT SCH (10:00)
[2019-06-12] MEDS ORDERED: FELODIPINE 2.5 MG PO SCH (10:00)
[2019-06-12] MEDS ORDERED: AMLODIPINE BESYLATE 2.5 MG TABLET PO SCH (10:00)
[2019-06-12] MEDS ORDERED: FLUTICASONE NASAL SPRAY 50 MCG/SPRY 120 SPRAY/16 GM NASL SCH (10:00)
[2019-06-12] MEDS ORDERED: DOCUSATE SODIUM 100 MG CAPSULE PO SCH (10:00)
--- NOTE | 2019-06-12 12:49 | PDOC DISCHARGE SUMMARY ---
Impression - Admit/DC Date/PCP Admission Date/Primary Care Provider: 06/11/19 15:58 SELENA NGUYEN DO Discharge Date: 06/12/19 - Discharge Diagnosis (1) MYRA (acute kidney injury) Is this a current diagnosis for this admission?: Yes (2) Hypokalemia Is this a current diagnosis for this admission?: Yes (3) Hypertension Is this a current diagnosis for this admission?: Yes - Additional Information Resuscitation Status: Full Code Discharge Diet: Cardiac Discharge Activity: Activity As Tolerated Referrals: SELENA NGUYEN DO [Primary Care Provider] - 06/17/19 Home Medications: Buspirone HCl 15 mg PO Q8 06/11/19 Eszopiclone 3 mg PO QHS 06/11/19 Felodipine [Felodipine ER] 2.5 mg PO DAILY 06/11/19 Fluticasone Propionate [Flonase Nasal [place] 50 Mcg/[place] 16 gm] 1 spray NASL DAILY 06/11/19 Hydrocodone/Acetaminophen [[place] 7.5-325 Tablet] 1 each PO Q6HP PRN 06/11/19 Loratadine [Claritin] 10 mg PO DAILY 06/11/19 Lorazepam 2 mg PO Q12HP PRN 06/11/19 Metformin HCl [Glucophage 500 mg Tablet] 1,000 mg PO QHS 06/11/19 Methocarbamol 500 mg PO Q6HP PRN 06/11/19 Metoprolol Tartrate [Lopressor 100 mg Tablet] 100 mg PO Q12 06/11/19 Oxcarbazepine [Oxtellar Xr] 600 mg PO Q12 06/11/19 Prazosin HCl [Minipress] 5 mg PO QHS 06/11/19 Pregabalin [Lyrica 100 mg Capsule] 100 mg PO Q12 06/11/19 Pregabalin [Lyrica 50 mg Capsule] 50 mg PO Q12 06/11/19 Quetiapine Fumarate [Seroquel] 400 mg PO QHS 06/11/19 History of Present Illiness History of Present Illness: DESTIN ECHOLS is a 33 year old female Presents to the emergency room with complaints of weakness as well as dizziness. She denies any nausea vomiting or diarrhea. She states she was just feeling weak and whilst walking her dog today she felt tired. She also says she has had some problems with her memory Hospital Course Hospital Course: Patient was admitted under observation status. She received parenteral potassium replacement as well as aggressive IV fluids. Her hydrochlorothiazide was held. Within 24 hours her electrolytes corrected. No other acute interventions are required at this time and as patient is hemodynamically stable she is been discharged home for outpatient follow-up. She has been continued on her other antihypertensives and will suggest outpatient reevaluation of her medications and adjustment as needed Physical Exam Vital Signs: Temp Pulse Resp BP Pulse Ox 98.1 F 77 16 133/52 H 100 06/12/19 11:03 06/12/19 11:03 06/12/19 11:03 06/12/19 11:03 06/12/19 11:03 Intake & Output 06/11/19 06/12/19 06/13/19 06:59 06:59 06:59 Intake Total 2650 1626 Output Total 800 Balance 1850 1626 Weight 77.9 kg General appearance: PRESENT: no acute distress, well-developed, well-nourished Head exam: PRESENT: atraumatic, normocephalic Eye exam: PRESENT: conjunctiva pink, EOMI, PERRLA. ABSENT: scleral icterus Ear exam: PRESENT: normal external ear exam Mouth exam: PRESENT: tongue midline Neck exam: ABSENT: carotid bruit, JVD, lymphadenopathy, thyromegaly Respiratory exam: PRESENT: clear to auscultation [place]. ABSENT: rales, rhonchi, wheezes Cardiovascular exam: PRESENT: RRR. ABSENT: diastolic murmur, rubs, systolic murmur Pulses: PRESENT: normal dorsalis pedis pul Vascular exam: PRESENT: normal capillary refill GI/Abdominal exam: PRESENT: normal bowel sounds, soft. ABSENT: distended, guarding, mass, organolmegaly, rebound, tenderness Rectal exam: PRESENT: deferred Extremities exam: PRESENT: full ROM. ABSENT: calf tenderness, clubbing, pedal edema Neurological exam: PRESENT: alert, awake, oriented to person, oriented to place, oriented to time, oriented to situation, CN II-XII grossly intact. ABSENT: motor sensory deficit Psychiatric exam: PRESENT: appropriate affect, normal mood. ABSENT: homicidal ideation, suicidal ideation Skin exam: PRESENT: dry, intact, warm. ABSENT: cyanosis, rash Results Laboratory Results: WBC 7.4 10^3/uL (4.0-10.5) 06/11/19 11:20 RBC 4.29 10^6/uL (3.72-5.28) 06/11/19 11:20 Hgb 12.6 g/dL (12.0-15.5) 06/11/19 11:20 Hct 36.5 % (36.0-47.0) 06/11/19 11:20 MCV 85 fl (80-97) 06/11/19 11:20 MCH 29.3 pg (27.0-33.4) 06/11/19 11:20 MCHC 34.5 g/dL (32.0-36.0) 06/11/19 11:20 RDW 14.5 % (11.5-14.0) H 06/11/19 11:20 Plt Count 398 10^3/uL (150-450) 06/11/19 11:20 Lymph % (Auto) 38.7 % (13-45) 06/11/19 11:20 [place] % (Auto) 9.8 % (3-13) 06/11/19 11:20 Eos % (Auto) 0.2 % (0-6) 06/11/19 11:20 Baso % (Auto) 0.8 % (0-2) 06/11/19 11:20 Absolute Neuts (auto) 3.8 10^3/uL (1.7-8.2) 06/11/19 11:20 Absolute Lymphs (auto) 2.9 10^3/uL (0.5-4.7) 06/11/19 11:20 Absolute Monos (auto) 0.7 10^3/uL (0.1-1.4) 06/11/19 11:20 Absolute Eos (auto) 0.0 10^3/uL (0.0-0.6) 06/11/19 11:20 Absolute Basos (auto) 0.1 10^3/uL (0.0-0.2) 06/11/19 11:20 Seg Neutrophils % 50.5 % (42-78) 06/11/19 11:20 Sodium 138.4 mmol/L (137-145) 06/12/19 07:16 Potassium 4.1 mmol/L (3.6-5.0) D 02/08/20 07:16 Chloride 102 mmol/L (98-107) 06/12/19 07:16 Carbon Dioxide 27 mmol/L (22-30) 06/12/19 07:16 Anion Gap 9 (5-19) 06/12/19 07:16 BUN 16 mg/dL (7-20) 06/12/19 07:16 Creatinine 0.73 mg/dL (0.52-1.25) 06/12/19 07:16 Est GFR ( Amer) > 60 (>60) 06/12/19 07:16 Est GFR (MDRD) Non-Af > 60 (>60) 06/12/19 07:16 Glucose 88 mg/dL (75-110) 06/12/19 07:16 Calcium 9.1 mg/dL (8.4-10.2) 06/12/19 07:16 Phosphorus 3.2 mg/dL (2.5-4.5) 06/11/19 11:20 Magnesium 1.7 mg/dL (1.6-2.3) 06/11/19 11:20 Total Bilirubin 0.3 mg/dL (0.2-1.3) 06/11/19 11:20 Direct Bilirubin 0.3 mg/dL (0.0-0.4) 06/11/19 11:20 Neonat Total Bilirubin Not Reportable 06/11/19 11:20 Neonat Direct Bilirubin Not Reportable 06/11/19 11:20 Neonat Indirect Bili Not Reportable 06/11/19 11:20 AST 22 U/L (14-36) 06/11/19 11:20 ALT 12 U/L (<35) 06/11/19 11:20 Alkaline Phosphatase 53 U/L (38-126) 06/11/19 11:20 Total Protein 9.1 g/dL (6.3-8.2) H 06/11/19 11:20 Albumin 4.8 g/dL (3.5-5.0) 06/11/19 11:20 Serum HCG, Qual NEGATIVE (NEGATIVE) 06/11/19 11:20 Urine Color YELLOW 06/11/19 14:04 Urine Appearance SLIGHTLY-CLOUDY 06/11/19 14:04 Urine pH 5.0 (5.0-9.0) 06/11/19 14:04 Ur Specific [place] 1.013 06/11/19 14:04 Urine Protein NEGATIVE mg/dL (NEGATIVE) 06/11/19 14:04 Urine Glucose (UA) NEGATIVE mg/dL (NEGATIVE) 06/11/19 14:04 Urine Ketones NEGATIVE mg/dL (NEGATIVE) 06/11/19 14:04 Urine Blood MODERATE (NEGATIVE) H 06/11/19 14:04 Urine Nitrite (Reflex) NEGATIVE (NEGATIVE) 06/11/19 14:04 Urine Bilirubin NEGATIVE (NEGATIVE) 06/11/19 14:04 Urine Urobilinogen NEGATIVE mg/dL (<2.0) 06/11/19 14:04 Leukocyte Esterase Rfl NEGATIVE (NEGATIVE) 06/11/19 14:04 Urine RBC (Auto) 1 /HPF 06/11/19 14:04 U Hyaline Cast (Auto) 10 /LPF 06/11/19 14:04 Urine Bacteria (Auto) TRACE /HPF 06/11/19 14:04 Urine WBC (Reflex) 3 /HPF 06/11/19 14:04 Squamous Epi Cells Auto 6 /HPF 06/11/19 14:04 Urine Mucus (Auto) RARE /LPF 06/11/19 14:04 Urine Ascorbic Acid NEGATIVE (NEGATIVE) 06/11/19 14:04 Urine Opiates Screen UNCONFIRMED POSITIVE 06/11/19 14:04 Urine Methadone Screen NEGATIVE 06/11/19 14:04 Ur Barbiturates Screen NEGATIVE 06/11/19 14:04 Ur Phencyclidine Scrn NEGATIVE 06/11/19 14:04 Ur Amphetamines Screen NEGATIVE 06/11/19 14:04 U Benzodiazepines Scrn NEGATIVE 06/11/19 14:04 Urine Cocaine Screen NEGATIVE 06/11/19 14:04 U Marijuana (THC) Screen NEGATIVE 06/11/19 14:04 Serum Alcohol < 10 mg/dL (NONE DETECTED) 06/11/19 11:20 Impressions: Head CT 06/11/19 10:48 IMPRESSION: NO ACUTE INTRACRANIAL IMAGING FINDINGS. EVIDENCE OF ACUTE STROKE: NO. Chest X-Ray 06/11/19 13:15 IMPRESSION: NO ACUTE RADIOGRAPHIC FINDING IN THE CHEST. Plan Time Spent: Less than 30 Minutes Stroke Is this a Stroke Patient?: No Acute Heart Failure - Is this a Heart Failure Patient?: No
[2019-06-12 13:14] VITALS: BP 144/70
== END 2019-06-12 13:32 | disposition home or self-care (01) ==
LOC: ER 10:37 → INTOOBSV 15:58 → EH 15:58 → 4S 19:51
PROVIDERS: ADMIT Internal Medicine; ATTEND Internal Medicine
DX: N17.9 Acute kidney failure, unspecified (principal); E87.6 Hypokalemia; I10 Essential (primary) hypertension; M31.4 Aortic arch syndrome [Takayasu]; Z79.899 Other long term (current) drug therapy; F41.9 Anxiety disorder, unspecified; R79.89 Other specified abnormal findings of blood chemistry; H55.09 Other forms of nystagmus; I69.398 Other sequelae of cerebral infarction; Z23 Encounter for immunization; F31.9 Bipolar disorder, unspecified; Z91.81 History of falling; Z86.79 Personal history of other diseases of the circulatory system
CPT/HCPCS: 93005; 99285; 96361; 96374; 36415 ×2; 80307 ×2; 83735; 84100; 84703; 85025; 80048; 80053; 81001; 71045; 70450; 90686; 93010; G0378 ×3; J3490 ×10; J3480 ×3; J2310; J1650; J7030

== ENCOUNTER 2019-06-15 15:47 | Emergency (ER) | payer MEDICAID ==
[2019-06-15] MEDS ORDERED: RINGERS SOLUTION,LACTATED 1,000 ML IV ONE (16:27)
[2019-06-15] MEDS ORDERED: ONDANSETRON HCL INJ/PF 4 MG/2 ML SDV IV ONE ×2 (16:27→21:00)
--- NOTE | 2019-06-15 16:35 | ER Document Report ---
ED Medical Screen (RME) - General Chief Complaint: Nausea Stated Complaint: NAUSEA Time Seen by Provider: 06/15/19 16:19 Primary Care Provider: SELENA NGUYEN DO [Primary Care Provider] - Follow up as needed Mode of Arrival: Ambulatory Information source: Patient Notes: Patient presents with a two-week history of nausea and diarrhea. Patient reports having diarrhea x2 episodes today. Patient was recently admitted for hypokalemia and dehydration. Patient does complain of low back pain and subjective fevers. 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 I have greeted and performed a rapid initial assessment of this patient. A comprehensive ED assessment and evaluation of the patient, analysis of test results and completion of the medical decision making process will be conducted by additional ED providers. TRAVEL OUTSIDE OF THE [place] IN LAST 30 DAYS: No - Related Data Allergies/Adverse Reactions: lisinopril Allergy (Verified 06/15/19 16:15) prednisone Allergy (Verified 06/15/19 16:15) tramadol [Tramadol] Allergy (Verified 06/15/19 16:15) Home Medications: takayasu arthritis. htn Past Medical History - Social History Chew tobacco use (# tins/day): No Frequency of alcohol use: None Drug Abuse: None - Past Medical History Cardiac Medical History: Reports: Hx Atrial Fibrillation, Hx Hypertension Neurological Medical History: Reports: Hx Seizures Renal/ Medical History: Reports: Hx Ovarian Cysts. Denies: Hx Peritoneal Dialysis Psychiatric Medical History: Reports: Hx Attention Deficit Hyperactivity Disorder, Hx Bipolar Disorder Past Surgical History: Reports: Hx Gynecologic Surgery - oophorectomy for ovarian cyst - Immunizations Hx Diphtheria, Pertussis, Tetanus Vaccination: No Physical Exam - Vital signs Vitals: Temp Pulse Resp BP Pulse Ox 98.5 F 90 20 151/57 H 98 06/15/19 15:52 06/15/19 15:52 06/15/19 15:52 06/15/19 15:52 06/15/19 15:52 - Back Back: CVA tenderness - left Course - Vital Signs Vital signs: Temp Pulse Resp BP Pulse Ox 98.5 F 90 20 151/57 H 98 06/15/19 15:52 06/15/19 15:52 06/15/19 15:52 06/15/19 15:52 06/15/19 15:52 Doctor's Discharge - Discharge Referrals: SELENA NGUYEN, [Primary Care Provider] - Follow up as needed
[2019-06-15 18:21] LABS: APPEARANCE,URINE CLEAR; BILIRUBIN,URINE NEGATIVE (NEGATIVE); COLOR,URINE YELLOW; GLUCOSE, URINE NEGATIVE (NEGATIVE); KETONES,URINE NEGATIVE (NEGATIVE); LEUKOCYTE ESTERASE,URINE TRACE (NEGATIVE); NITRITE,URINE NEGATIVE (NEGATIVE); PROTEIN,URINE NEGATIVE (NEGATIVE); URINE SPECIFIC GRAVITY 1.019; UROBILINOGEN,URINE NEGATIVE mg/dL (<2.0)
[2019-06-15 20:55] LABS: ABSOLUTE BASOPHILS # (AUTO) 0.1 10^3/uL (0.0-0.2); ABSOLUTE EOSINOPHILS # (AUTO) 0.1 10^3/uL (0.0-0.6); ABSOLUTE LYMPHOCYTES (AUTO) 4.2 10^3/uL (0.5-4.7); ABSOLUTE MONOCYTES (AUTO) 0.5 10^3/uL (0.1-1.4); ABSOLUTE NEUT (AUTO) 2.6 10^3/uL (1.7-8.2); BASOPHILS % (AUTO) 0.7 % (0-2); EOSINOPHILS % (AUTO) 0.7 % (0-6); HEMATOCRIT 36.8 % (36.0-47.0); HEMOGLOBIN 12.5 g/dL (12.0-15.5); LYMPHOCYTES % (AUTO) 56.4 % (13-45); MEAN CORPUSCULAR VOLUME 85 fl (80-97); PLATELET COUNT 377 10^3/uL (150-450); RED BLOOD COUNT 4.31 10^6/uL (3.72-5.28); SEGMENTED NEUTROPHILS % (AUTO) 35.2 % (42-78); TOTAL CELLS COUNTED % (AUTO) 100 %; WHITE BLOOD COUNT 7.5 10^3/uL (4.0-10.5)
[2019-06-15 21:15] LABS: ALBUMIN 4.9 g/dL (3.5-5.0); ALKALINE PHOSPHATASE 53 U/L (38-126); ANION GAP 12 (5-19); ASPARTATE AMINO TRANSFERASE 25 U/L (14-36); BILIRUBIN,DIRECT 0.3 mg/dL (0.0-0.4); BILIRUBIN,TOTAL 0.3 mg/dL (0.2-1.3); BLOOD UREA NITROGEN 15 mg/dL (7-20); CALCIUM 9.6 mg/dL (8.4-10.2); CARBON DIOXIDE 24 mmol/L (22-30); CHLORIDE 105 mmol/L (98-107); GLUCOSE 82 mg/dL (75-110); POTASSIUM 3.7 mmol/L (3.6-5.0); TOTAL PROTEIN 9.3 g/dL (6.3-8.2)
[2019-06-15 21:20] VITALS: BP 163/74
[2019-06-15] MEDS ORDERED: CEFTRIAXONE 1 GM/D5W RTU 1 GM/50 ML RTUPB IV ONE (21:34)
[2019-06-15] MEDS ORDERED: POTASSIUM CHLORIDE 10 MEQ TABLET.ER PO ONE (21:34)
--- NOTE | 2019-06-15 21:44 | ER Document Report ---
HPI - HPI Time Seen by Provider: 06/15/19 16:19 Pain Level: 3 Notes: 33-year-old female patient recently discharged from the hospital for hypokalemia and acute kidney injury presenting to the emergency department with continued nausea and 2 episodes of diarrhea today. Patient reports she is feeling better than when she was discharged but is not back to her usual self. She denies any fevers, abdominal pain or vomiting. She denies any dysuria, urinary frequency or urgency. - CONSTITUTIONAL Constitutional: DENIES: Fever, Chills - GASTROINTESTINAL Gastrointestinal: REPORTS: Abdominal Pain. DENIES: Black / Bloody Stools - REPRODUCTIVE Reproductive: DENIES: : Past Medical History - General Information source: Patient - Social History Smoking Status: Unknown if Ever Smoked Chew tobacco use (# tins/day): No Frequency of alcohol use: None Drug Abuse: None Family History: Reviewed & Not Pertinent Patient has suicidal ideation: No Patient has homicidal ideation: No - Past Medical History Cardiac Medical History: Reports: Hx Atrial Fibrillation, Hx Hypertension Neurological Medical History: Reports: Hx Seizures Renal/ Medical History: Reports: Hx Ovarian Cysts. Denies: Hx Peritoneal Di alysis Psychiatric Medical History: Reports: Hx Attention Deficit Hyperactivity Disorder, Hx Bipolar Disorder Past Surgical History: Reports: Hx Gynecologic Surgery - oophorectomy for ovarian cyst - Immunizations Hx Diphtheria, Pertussis, Tetanus Vaccination: No Vertical Provider Document - CONSTITUTIONAL Notes: PHYSICAL EXAMINATION: GENERAL: Well-appearing, well-nourished and in no acute distress. HEAD: Atraumatic, normocephalic. EYES: Pupils equal round and reactive to light, extraocular movements intact, conjunctiva are normal. ENT: Nares patent, oropharynx clear without exudates. Moist mucous membranes. NECK: Normal range of motion, supple without lymphadenopathy LUNGS: Breath sounds clear to auscultation bilaterally and equal. No wheezes rales or rhonchi. HEART: Regular rate and rhythm without murmurs ABDOMEN: Soft, nontender, nondistended abdomen. No guarding, no rebound. No masses appreciated. Female : deferred Musculoskeletal: Normal range of motion, no pitting or edema. No cyanosis. NEUROLOGICAL: Cranial nerves grossly intact. Normal speech, normal gait. Normal sensory, motor exams PSYCH: Normal mood, normal affect. SKIN: Warm, Dry, normal turgor, no rashes or lesions noted. - INFECTION CONTROL TRAVEL OUTSIDE OF THE [place] IN LAST 30 DAYS: No Course - Re-evaluation Re-evalutation: Patient appears well, nontoxic is in the room smiling and laughing with her son. Her physical exam is benign. Her abdomen is soft and nontender. CBC and CMP are both unremarkable. Potassium 3.7. Urinalysis does show a urinary tract infection. With patient's history of recent hospitalization I will give 1 g of ceftriaxone IV prior to discharge. - Vital Signs Vital signs: Temp Pulse Resp BP Pulse Ox 98.5 F 90 18 163/74 H 100 06/15/19 15:52 06/15/19 15:52 06/15/19 21:01 06/15/19 21:01 06/15/19 21:01 - Laboratory Result Diagrams: 06/15/19 20:25 06/15/19 20:25 Laboratory results interpreted by me: 06/15/19 06/15/19 06/15/19 17:49 20:25 20:25 Lymph % (Auto) 56.4 H Seg Neutrophils % 35.2 L Total Protein 9.3 H Urine Blood SMALL H Ur Leukocyte Esterase TRACE H Discharge - Discharge Clinical Impression: Nausea Diarrhea Qualifiers: Diarrhea type: unspecified type Qualified Code(s): R19.7 - Diarrhea, unspecified Condition: Stable Disposition: HOME, SELF-CARE Instructions: Family Physicians / Practices Additional Instructions: You were seen in the emergency department today with continued concern for nausea. Your urine shows that you have a urinary tract infection. We will start you on some antibiotics for this. Please push fluids. Try to stay hydrated. Follow-up with your primary care doctor regarding direction on your hydrochlorothiazide. Prescriptions: Cephalexin [Keflex] 500 mg PO BID #14 capsule Potassium Chloride 20 meq PO DAILY #30 tablet.er Ondansetron [Zofran Odt 4 mg Tablet] 1 - 2 tab PO Q4H PRN #15 tab.rapdis PRN Reason: For Nausea/Vomiting Referrals: SELENA NGUYEN DO [Primary Care Provider] - Follow up as needed
== END 2019-06-15 22:49 | disposition home or self-care (01) ==
LOC: ER 15:47
DX: R19.7 Diarrhea, unspecified (principal); N39.0 Urinary tract infection, site not specified; R11.0 Nausea; I10 Essential (primary) hypertension
CPT/HCPCS: 36415; 83735; 84703; 85025; 80053; 81001; J2405; J7120; J0696; 96361; 96365; 96375; 99283

== ENCOUNTER → 2019-08-17 | Outpatient (CLI) | payer MEDICAID ==
[2019-08-17 15:36] LABS: ALBUMIN 4.7 g/dL (3.5-5.0); ALKALINE PHOSPHATASE 85 U/L (38-126); ANION GAP 9 (5-19); ASPARTATE AMINO TRANSFERASE 41 U/L (14-36); BILIRUBIN,DIRECT 0.1 mg/dL (0.0-0.4); BILIRUBIN,TOTAL 0.4 mg/dL (0.2-1.3); BLOOD UREA NITROGEN 7 mg/dL (7-20); CALCIUM 9.8 mg/dL (8.4-10.2); CARBON DIOXIDE 29 mmol/L (22-30); CHLORIDE 98 mmol/L (98-107); GLUCOSE 116 mg/dL (75-110); POTASSIUM 4.3 mmol/L (3.6-5.0); TOTAL PROTEIN 9.1 g/dL (6.3-8.2); TRIGLYCERIDES 373 mg/dL (<150)
[2019-08-17 15:47] LABS: DIRECT LDL 131 mg/dL (<100)
[2019-08-17 15:48] LABS: FREE T4 (FREE THYROXINE) 0.64 ng/dL (0.78-2.19); VLDL CHOLESTEROL 74.6 mg/dL (10-31)
[2019-08-17 16:02] LABS: THYROID STIMULATING HORMONE 1.49 uIU/mL (0.47-4.68)
== END ==
LOC: OD 13:55
PROVIDERS: ATTEND Psychiatry & Neurology Psychiatry
DX: F43.12 Post-traumatic stress disorder, chronic (principal)
CPT/HCPCS: 36415; 80053; 80061; 83036; 84439; 84443

== ENCOUNTER 2019-11-07 16:18 | Emergency (ER) | payer MEDICAID ==
--- NOTE | 2019-11-07 18:39 | ER Document Report ---
ED Medical Screen (RME) - General Chief Complaint: Syncope Stated Complaint: MIGRAINE Time Seen by Provider: 11/07/19 18:33 Primary Care Provider: ÓSCAR TEJADA MD [Primary Care Provider] - Follow up as needed Mode of Arrival: Wheelchair Information source: Patient Notes: 33-year-old female presents to ED for complaint of headache off and on for the last 2 days. She has a long history of migraines. She states that is much been much worse for the last 2 days. She states this headache started on the right and migrated to the left. She states today that it was so bad that she had a syncopal episode. She states she is sensitive to light and noise. She states she has had a stroke in the past. She does not know which side it was on. She states she went to her doctor and told him that she did not feel right and they did not change anything. She states she does take medications for migraines. Patient is alert oriented respirations regular nonlabored speaking in full sentences. He does not have any facial droop, palmar drift, weakness in either leg. We will get syncopal work-up started and she will be seen by another provider. I have greeted and performed a rapid initial assessment of this patient. A comprehensive ED assessment and evaluation of the patient, analysis of test results and completion of medical decision making process will be conducted by an additional ED providers. TRAVEL OUTSIDE OF THE [place] IN LAST 30 DAYS: No - Related Data Allergies/Adverse Reactions: lisinopril Allergy (Verified 11/07/19 18:30) prednisone Allergy (Verified 11/07/19 18:30) tramadol [Tramadol] Allergy (Verified 11/07/19 18:30) Past Medical History - Past Medical History Cardiac Medical History: Reports: Hx Atrial Fibrillation, Hx Hypertension Neurological Medical History: Reports: Hx Seizures Renal/ Medical History: Reports: Hx Ovarian Cysts. Denies: Hx Peritoneal Dialysis Psychiatric Medical History: Reports: Hx Attention Deficit Hyperactivity Disorder, Hx Bipolar Disorder Past Surgical History: Reports: Hx Gynecologic Surgery - oophorectomy for ovarian cyst - Immunizations Hx Diphtheria, Pertussis, Tetanus Vaccination: No Physical Exam - Vital signs Vitals: Temp Pulse Resp BP Pulse Ox 98.5 F 99 18 177/67 H 100 11/07/19 16:38 11/07/19 16:38 11/07/19 16:38 11/07/19 16:38 11/07/19 16:38 Course - Vital Signs Vital signs: Temp Pulse Resp BP Pulse Ox 98.5 F 99 18 177/67 H 100 11/07/19 16:38 11/07/19 16:38 11/07/19 16:38 11/07/19 16:38 11/07/19 16:38 Doctor's Discharge - Discharge Referrals: ÓSCAR TEJADA MD [Primary Care Provider] - Follow up as needed
[2019-11-07 19:28] LABS: ABSOLUTE LYMPHOCYTES (AUTO) 2.1 10^3/uL (0.5-4.7); ABSOLUTE MONOCYTES (AUTO) 0.4 10^3/uL (0.1-1.4); ABSOLUTE NEUT (AUTO) 2.1 10^3/uL (1.7-8.2); BASOPHILS % (AUTO) 0.7 % (0-2); EOSINOPHILS % (AUTO) 0.3 % (0-6); HEMATOCRIT 34.2 % (36.0-47.0); HEMOGLOBIN 11.5 g/dL (12.0-15.5); LYMPHOCYTES % (AUTO) 45.8 % (13-45); MEAN CORPUSCULAR HEMOGLOBIN 28.4 pg (27.0-33.4); MEAN CORPUSCULAR HGB CONC 33.7 g/dL (32.0-36.0); MEAN CORPUSCULAR VOLUME 84 fl (80-97); MONOCYTES % (AUTO) 7.7 % (3-13); PLATELET COUNT 476 10^3/uL (150-450); RED BLOOD COUNT 4.07 10^6/uL (3.72-5.28); RED CELL DISTRIBUTION WIDTH 15.3 % (11.5-14.0); SEGMENTED NEUTROPHILS % (AUTO) 45.5 % (42-78); TOTAL CELLS COUNTED % (AUTO) 100 %; WHITE BLOOD COUNT 4.6 10^3/uL (4.0-10.5)
[2019-11-07 19:47] LABS: ALKALINE PHOSPHATASE 67 U/L (38-126); ANION GAP 9 (5-19); ASPARTATE AMINO TRANSFERASE 20 U/L (14-36); BILIRUBIN,TOTAL 0.4 mg/dL (0.2-1.3); BLOOD UREA NITROGEN 9 mg/dL (7-20); CALCIUM 9.6 mg/dL (8.4-10.2); CARBON DIOXIDE 25 mmol/L (22-30); CHLORIDE 107 mmol/L (98-107); GLUCOSE 80 mg/dL (75-110); POTASSIUM 3.3 mmol/L (3.6-5.0); TOTAL PROTEIN 9.6 g/dL (6.3-8.2)
--- NOTE | 2019-11-07 20:35 | ER Document Report ---
ED General - General Chief Complaint: Syncope Stated Complaint: MIGRAINE Time Seen by Provider: 11/07/19 18:33 Primary Care Provider: SELENA NGUYEN DO [Primary Care Provider] - Follow up in 3-5 days Mode of Arrival: Wheelchair Notes: Patient is a 33-year-old female that comes emergency department for several complaints. Chief complaint is a headache that has been going on "for months", she states it has been more noticeable over the past several days, she states that she frequently gets a throbbing headache in the middle of the top of her head and occasionally on either side of her face. She states that earlier today the right side of her face "seemed like it was swelling along with my lips". She states this resolved spontaneously on its own, she denies difficulty swallowing or breathing, she denies a rash or itching. She denies ever having this happen before. She also states she thinks she might of passed out at home, she states she was lying in her bed, she states she started feeling "very shaky", she states that she then woke up in her bed and wonders if she passed out. She denies chest pain, change in headache, focal numbness or weakness. She denies any new medications, she states she saw her primary care provider within the past 2 days for her headaches but they did not change her medications. Past medical history reported to be "rapid heart rate" on metopro lol, bipolar disorder, migraines on Topamax (however patient states the Topamax is for her mood and she is not certain there for headaches). She is also on azathioprine. She denies any fever, neck pain, head or neck injury. She denies recreational drugs, . TRAVEL OUTSIDE OF THE [place] IN LAST 30 DAYS: No - Related Data Allergies/Adverse Reactions: lisinopril Allergy (Verified 11/07/19 18:30) prednisone Allergy (Verified 11/07/19 18:30) tramadol [Tramadol] Allergy (Verified 11/07/19 18:30) Home Medications: topamax. lunesta. imuran. lyrica. prazosin. hydrocodone. clonazepam. buspar Past Medical History - General Information source: Patient - Social History Smoking Status: Former Smoker Chew tobacco use (# tins/day): No Frequency of alcohol use: None Drug Abuse: None Lives with: Family Family History: Reviewed & Not Pertinent Patient has homicidal ideation: No - Past Medical History Cardiac Medical History: Reports: Hx Atrial Fibrillation, Hx Hypertension Neurological Medical History: Reports: Hx Seizures Renal/ Medical History: Reports: Hx Ovarian Cysts. Denies: Hx Peritoneal Dialysis Psychiatric Medical History: Reports: Hx Attention Deficit Hyperactivity Disorder, Hx Bipolar Disorder Past Surgical History: Reports: Hx Gynecologic Surgery - oophorectomy for ovarian cyst - Immunizations Hx Diphtheria, Pertussis, Tetanus Vaccination: No Review of Systems - Review of Systems Constitutional: See HPI EENT: No symptoms reported Cardiovascular: No symptoms reported Respiratory: No symptoms reported Gastrointestinal: No symptoms reported Genitourinary: No symptoms reported Female Genitourinary: No symptoms reported Musculoskeletal: No symptoms reported Skin: No symptoms reported Hematologic/Lymphatic: No symptoms reported Neurological/Psychological: See HPI Physical Exam - Vital signs Vitals: Temp Pulse Resp BP Pulse Ox 98.5 F 99 18 177/67 H 100 11/07/19 16:38 11/07/19 16:38 11/07/19 16:38 11/07/19 16:38 11/07/19 16:38 - Notes Notes: GENERAL: Alert, interacts well. No acute distress. HEAD: Normocephalic, atraumatic. EYES: Pupils equal, round, and reactive to light. Extraocular movements intact. ENT: Oral mucosa moist, tongue midline. Oropharynx unremarkable. Airway patent. NECK: Full range of motion. Supple. Trachea midline. No lymphadenopathy. No nuchal rigidity. LUNGS: Clear to auscultation bilaterally, no wheezes, rales, or rhonchi. No respiratory distress. Non-tender chest wall. HEART: Regular rate and rhythm. No murmur ABDOMEN: Soft, non-tender. Non-distended. Bowel sounds present in all 4 quadrants. GENITOURINARY: Deferred EXTREMITIES: Moves all 4 extremities spontaneously. No edema, normal radial and dorsalis pedis pulses bilaterally. No cyanosis. BACK: no cervical, thoracic, lumbar midline tenderness. No saddle anesthesia, normal distal neurovascular exam. Moves all extremities in full range of motion. NEUROLOGICAL: Alert and oriented x3. Normal speech. Cranial nerves II through XII grossly intact. Strength 5/5 in all extremities. PSYCH: Normal affect, normal mood. SKIN: Warm, dry, normal turgor. No rashes or lesions noted. Course - Re-evaluation Re-evalutation: Patient smiling, alert, well-appearing. She has no evidence of allergic reaction on my evaluation, she has no neurological deficits, she states she has a headache but the headache is standard for her. However she states she thinks she passed out, she is noted to be hypertensive here, and she is stating that the headache is severe. I did review work-up from triage which showed mild hypokalemia, some dehydration, nonspecific drug screen given patient's prescriptions. CAT scan of the head was performed, this does not show intracranial hemorrhage, blood pressure improved on reevaluation. Patient sl eeping and easily aroused. She states her headache is gone and she feels much better, she is requesting discharge. Based on her work-up, evaluation, response to treatment, I do have a very low suspicion of acute emergent intracranial abnormality. Discussed expectations, follow-up, return precautions. Patient states understanding and agreement with plan. Stable, asymptomatic, well- appearing at time of discharge. - Vital Signs Vital signs: Temp Pulse Resp BP Pulse Ox 98.5 F 99 16 140/68 H 100 11/07/19 18:30 11/07/19 16:38 11/07/19 23:01 11/07/19 23:00 11/07/19 23:01 - Laboratory Result Diagrams: 11/07/19 19:10 11/07/19 19:10 Laboratory results interpreted by me: 11/07/19 11/07/19 11/07/19 19:10 19:10 22:01 Hgb 11.5 L Hct 34.2 L RDW 15.3 H Plt Count 476 H Lymph % (Auto) 45.8 H Potassium 3.3 L Total Protein 9.6 H Urine Protein 30 H Urine Ketones 20 H Urine Blood SMALL H - EKG Interpretation by Me Additional EKG results interpreted by me: EKG shows sinus rhythm at a rate of 91, borderline axis with borderline left axis deviation. No T wave inversions or ST segment changes in consecutive leads. MS interval 176, QTc 429. Discharge - Discharge Clinical Impression: Facial swelling, Lightheaded Headache Qualifiers: Headache type: unspecified Headache chronicity pattern: acute headache I ntractability: not intractable Qualified Code(s): R51 - Headache Condition: Stable Disposition: HOME, SELF-CARE Additional Instructions: Your CAT scan of the brain and overall evaluation is very reassuring. Your symptoms are very suggestive of a migraine. Follow-up with primary care for additional management of migraine headaches. Your potassium has been supplemented again, because this frequently becomes low this may need additional testing and monitored by primary care. You have been treated for dehydration, it is important that you improve your hydration or your symptoms will become more frequent. It is uncertain if he had an allergic reaction earlier, however I do recommend an [id number] antihistamine such as Zyrtec 10 mg daily for the next week. Also consider Flonase nasal spray because of your sinus symptoms. Continue your current medications. Return if you worsen including returned or severe headache, vomiting, fever, chest pain, difficulty breathing, passing out, or any other concerning or worsening symptoms. Referrals: SELENA NGUYEN DO [Primary Care Provider] - Follow up in 3-5 days
[2019-11-07] MEDS ORDERED: METOCLOPRAMIDE HCL INJ/PF 10 MG/2 ML SDV IV ONE (20:47)
[2019-11-07] MEDS ORDERED: DIPHENHYDRAMINE HCL 50 MG/ML VIAL IV ONE (20:47)
--- NOTE | 2019-11-07 21:12 | RADIOLOGY REPORT (SQ) ---
CT HEAD WITHOUT IV CONTRAST HISTORY: Headache, hypertension, possible syncope. COMPARISON: 06/11/2019 TECHNIQUE: CT scan of the brain was performed without IV contrast. This exam was performed according to our departmental dose-optimization program, which includes automated exposure control, adjustment of the mA and/or kV according to patient size and/or use of iterative reconstruction technique. FINDINGS: The ventricles, cisterns, and sulci are age-appropriate. No evidence of acute infarction, intracranial hemorrhage, extra-axial fluid collection, or midline shift. No air-fluid levels are seen in the paranasal sinuses to suggest acute sinusitis. No depressed skull fracture. IMPRESSION: No acute intracranial findings.
[2019-11-07 22:20] LABS: APPEARANCE,URINE SLIGHTLY-CLOUDY; BILIRUBIN,URINE NEGATIVE (NEGATIVE); COLOR,URINE YELLOW; GLUCOSE, URINE NEGATIVE (NEGATIVE); KETONES,URINE 20 mg/dL (NEGATIVE); LEUKOCYTE ESTERASE,URINE NEGATIVE (NEGATIVE); NITRITE,URINE NEGATIVE (NEGATIVE); PROTEIN,URINE 30 mg/dL (NEGATIVE); URINE SPECIFIC GRAVITY 1.028; UROBILINOGEN,URINE NEGATIVE mg/dL (<2.0)
[2019-11-07] MEDS ORDERED: POTASSIUM CHLORIDE 10 MEQ TABLET.ER PO ONE (22:27)
[2019-11-07 22:35] LABS: URINE AMPHETAMINES SCREEN UNCONFIRMED POSITIVE; URINE BARBITURATES SCREEN NEGATIVE; URINE BENZODIAZEPINES SCREEN NEGATIVE; URINE COCAINE SCREEN NEGATIVE; URINE MARIJUANA (THC) SCREEN NEGATIVE; URINE METHADONE SCREEN NEGATIVE; URINE PHENCYCLIDINE SCREEN NEGATIVE
[2019-11-08 00:04] VITALS: BP 140/68
--- NOTE | 2019-11-08 01:07 | EKG REPORT ---
SEVERITY:- ABNORMAL ECG - SINUS RHYTHM LEFT ATRIAL ABNORMALITY PROBABLE LEFT VENTRICULAR HYPERTROPHY : Confirmed by: Brynn Chung MD 08-Nov-2019 01:05:32
== END 2019-11-08 00:05 | disposition home or self-care (01) ==
LOC: ER 16:18
DX: R51 Headache (principal); R22.0 Localized swelling, mass and lump, head; E86.0 Dehydration; E87.6 Hypokalemia; R42 Dizziness and giddiness; I10 Essential (primary) hypertension; R56.9 Unspecified convulsions; R00.0 Tachycardia, unspecified; F31.9 Bipolar disorder, unspecified; Z79.899 Other long term (current) drug therapy; Z79.891 Long term (current) use of opiate analgesic; Z87.891 Personal history of nicotine dependence; Z88.8 Allergy status to other drugs, medicaments and biological substances; Z88.6 Allergy status to analgesic agent
CPT/HCPCS: 93005; 99284; 96374; 96375; 36415; 84703; 85025; 80053; 81001; 80307; 70450; 93010; J1200; J2765

== ENCOUNTER → 2020-01-03 | Outpatient (CLI) | payer MEDICAID ==
[2020-01-03 17:19] LABS: ABSOLUTE LYMPHOCYTES (AUTO) 2.8 10^3/uL (0.5-4.7); ABSOLUTE MONOCYTES (AUTO) 0.4 10^3/uL (0.1-1.4); ABSOLUTE NEUT (AUTO) 2.1 10^3/uL (1.7-8.2); BASOPHILS % (AUTO) 0.5 % (0-2); EOSINOPHILS % (AUTO) 0.8 % (0-6); HEMATOCRIT 28.8 % (36.0-47.0); HEMOGLOBIN 9.7 g/dL (12.0-15.5); LYMPHOCYTES % (AUTO) 52.9 % (13-45); MEAN CORPUSCULAR HGB CONC 33.5 g/dL (32.0-36.0); MEAN CORPUSCULAR VOLUME 84 fl (80-97); MONOCYTES % (AUTO) 6.6 % (3-13); PLATELET COUNT 289 10^3/uL (150-450); RED BLOOD COUNT 3.45 10^6/uL (3.72-5.28); SEGMENTED NEUTROPHILS % (AUTO) 39.2 % (42-78); TOTAL CELLS COUNTED % (AUTO) 100 %; WHITE BLOOD COUNT 5.3 10^3/uL (4.0-10.5)
[2020-01-03 17:51] LABS: BLOOD UREA NITROGEN 14 mg/dL (7-20); CALCIUM 8.4 mg/dL (8.4-10.2); CARBON DIOXIDE 27 mmol/L (22-30); CHLORIDE 104 mmol/L (98-107); GLUCOSE 74 mg/dL (75-110); POTASSIUM 3.9 mmol/L (3.6-5.0)
[2020-01-03 17:52] LABS: ALKALINE PHOSPHATASE 44 U/L (38-126); ANION GAP 7 (5-19); ASPARTATE AMINO TRANSFERASE 26 U/L (14-36); BILIRUBIN,DIRECT 0.3 mg/dL (0.0-0.4); BILIRUBIN,TOTAL 0.3 mg/dL (0.2-1.3); TOTAL PROTEIN 7.5 g/dL (6.3-8.2)
[2020-01-03 17:55] LABS: LITHIUM < 0.2 mEq/L (0.6-1.2)
[2020-01-03 18:06] LABS: FREE T4 (FREE THYROXINE) 1.04 ng/dL (0.78-2.19)
[2020-01-03 18:20] LABS: THYROID STIMULATING HORMONE 2.32 uIU/mL (0.47-4.68)
== END ==
LOC: OD 14:48
PROVIDERS: ATTEND Psychiatry & Neurology Psychiatry
DX: F43.12 Post-traumatic stress disorder, chronic (principal); Z79.899 Other long term (current) drug therapy
CPT/HCPCS: 36415; 80053; 80178; 84439; 84443; 85025

== ENCOUNTER → 2020-01-18 | Outpatient (CLI) | payer MEDICAID ==
[2020-01-18 09:41] LABS: HEMATOCRIT 35.3 % (36.0-47.0); HEMOGLOBIN 11.8 g/dL (12.0-15.5); MEAN CORPUSCULAR HEMOGLOBIN 28.2 pg (27.0-33.4); MEAN CORPUSCULAR HGB CONC 33.5 g/dL (32.0-36.0); MEAN CORPUSCULAR VOLUME 84 fl (80-97); PLATELET COUNT 336 10^3/uL (150-450); RED BLOOD COUNT 4.18 10^6/uL (3.72-5.28); RED CELL DISTRIBUTION WIDTH 15.1 % (11.5-14.0); WHITE BLOOD COUNT 4.9 10^3/uL (4.0-10.5)
[2020-01-18 10:11] LABS: ANION GAP 10 (5-19); BLOOD UREA NITROGEN 9 mg/dL (7-20); CALCIUM 9.6 mg/dL (8.4-10.2); CARBON DIOXIDE 26 mmol/L (22-30); CHLORIDE 105 mmol/L (98-107); GLUCOSE 90 mg/dL (75-110); POTASSIUM 4.6 mmol/L (3.6-5.0)
== END ==
LOC: OD 07:57
PROVIDERS: ATTEND Physician Assistant
DX: I10 Essential (primary) hypertension (principal); R00.2 Palpitations; D64.9 Anemia, unspecified
CPT/HCPCS: 36415; 80048; 83735; 84443; 85027

== ENCOUNTER 2020-01-20 10:48 | Emergency (ER) | payer MEDICAID ==
[2020-01-20] MEDS ORDERED: RINGERS SOLUTION,LACTATED 1,000 ML IV ONE (12:12)
[2020-01-20] MEDS ORDERED: METOCLOPRAMIDE HCL INJ/PF 10 MG/2 ML SDV IV ONE (12:12)
[2020-01-20] MEDS ORDERED: DIPHENHYDRAMINE HCL 50 MG/ML VIAL IV ONE (12:12)
--- NOTE | 2020-01-20 12:15 | ER Document Report ---
ED Medical Screen (RME) - General Chief Complaint: Chest Pain Stated Complaint: CHEST PAIN/DIZZNESS Time Seen by Provider: 01/20/20 12:06 Primary Care Provider: MICHELLE BENITEZ PA-C [Primary Care Provider] - Follow up as needed Mode of Arrival: Wheelchair Information source: Patient Notes: HPI; 34-year-old female presents emergency room complaining of chest pain with shortness of breath and a headache. Patient states she was having a nuclear med stress test this morning for chest pain, syncope, states after completing the test she started having worsening chest pain with shortness of breath and a headache. States she was having stress tests because of her persistent chest pain. The pain shortness of breath is been going on for the past several weeks. Patient has a history of jovany, heart murmur and migraines. States the headache is similar to her previous migraines. Denies any sudden thunderclap. Denies worst headache of her life. PE: Alert and oriented x3. Mild distress noted. Lungs: Clear to auscultation without rales, rhonchi, wheezes. Heart: Tachycardic without murmurs, rubs, gallops. I have greeted and performed a rapid initial assessment of this patient. A comprehensive ED assessment and evaluation of the patient, analysis of test results and completion of the medical decision making process will be conducted by additional ED providers. I have specifically instructed the patient or family members with the patient to immediately return to any nursing staff should anything change in the patient's condition or with their chief complaint. TRAVEL OUTSIDE OF THE [place] IN LAST 30 DAYS: No - Related Data Allergies/Adverse Reactions: amlodipine Allergy (Verified 01/20/20 12:10) lisinopril Allergy (Verified 11/07/19 18:30) prednisone Allergy (Verified 11/07/19 18:30) tramadol [Tramadol] Allergy (Verified 11/07/19 18:30) Past Medical History - Social History Frequency of alcohol use: None Drug Abuse: None - Past Medical History Cardiac Medical History: Reports: Hx Atrial Fibrillation, Hx Hypertension Neurological Medical History: Reports: Hx Seizures Renal/ Medical History: Reports: Hx Ovarian Cysts. Denies: Hx Peritoneal Dialysis Psychiatric Medical History: Reports: Hx Attention Deficit Hyperactivity Disorder, Hx Bipolar Disorder Past Surgical History: Reports: Hx Gynecologic Surgery - oophorectomy for ovarian cyst - Immunizations Hx Diphtheria, Pertussis, Tetanus Vaccination: No Physical Exam - Vital signs Vitals: Temp Pulse Resp BP Pulse Ox 98.1 F 84 16 197/75 H 98 01/20/20 11:10 01/20/20 11:10 01/20/20 11:10 01/20/20 11:10 01/20/20 11:10 Course - Vital Signs Vital signs: Temp Pulse Resp BP Pulse Ox 98.1 F 84 16 197/75 H 98 01/20/20 11:10 01/20/20 11:10 01/20/20 11:10 01/20/20 11:10 01/20/20 11:10 Doctor's Discharge - Discharge Referrals: MICHELLE BENITEZ, NICOLEC [Primary Care Provider] - Follow up as needed
[2020-01-20 13:08] LABS: ABSOLUTE LYMPHOCYTES (AUTO) 2.4 10^3/uL (0.5-4.7); ABSOLUTE MONOCYTES (AUTO) 0.4 10^3/uL (0.1-1.4); ABSOLUTE NEUT (AUTO) 5.3 10^3/uL (1.7-8.2); BASOPHILS % (AUTO) 0.4 % (0-2); EOSINOPHILS % (AUTO) 0.5 % (0-6); HEMATOCRIT 35.7 % (36.0-47.0); HEMOGLOBIN 11.8 g/dL (12.0-15.5); MEAN CORPUSCULAR HGB CONC 33.1 g/dL (32.0-36.0); MEAN CORPUSCULAR VOLUME 85 fl (80-97); MONOCYTES % (AUTO) 4.4 % (3-13); PLATELET COUNT 377 10^3/uL (150-450); RED BLOOD COUNT 4.23 10^6/uL (3.72-5.28); RED CELL DISTRIBUTION WIDTH 14.9 % (11.5-14.0); SEGMENTED NEUTROPHILS % (AUTO) 64.7 % (42-78); TOTAL CELLS COUNTED % (AUTO) 100 %; WHITE BLOOD COUNT 8.1 10^3/uL (4.0-10.5)
--- NOTE | 2020-01-20 13:23 | RADIOLOGY REPORT (SQ) ---
EXAM DESCRIPTION: CHEST SINGLE VIEW IMAGES COMPLETED DATE/TIME: 01/20/2020 1:15 pm REASON FOR STUDY: chest pain COMPARISON: None. NUMBER OF VIEWS: One view. TECHNIQUE: Single frontal radiographic view of the chest acquired. LIMITATIONS: None. FINDINGS: LUNGS AND PLEURA: No opacities, masses or pneumothorax. No pleural effusion. MEDIASTINUM AND HILAR STRUCTURES: No masses. Contour normal. HEART AND VASCULAR STRUCTURES: Heart normal in size. Normal vasculature. BONES: No acute findings. HARDWARE: None in the chest. OTHER: No other significant finding. IMPRESSION: NO SIGNIFICANT RADIOGRAPHIC FINDING IN THE CHEST. TECHNICAL DOCUMENTATION: JOB ID: [id number] 2010 [employer]- All Rights Reserved Reading location - IP/workstation name: [email or web address]
[2020-01-20 13:37] LABS: ALBUMIN 4.7 g/dL (3.5-5.0); ALKALINE PHOSPHATASE 44 U/L (38-126); ANION GAP 10 (5-19); ASPARTATE AMINO TRANSFERASE 22 U/L (14-36); BILIRUBIN,DIRECT 0.3 mg/dL (0.0-0.4); BILIRUBIN,TOTAL 0.4 mg/dL (0.2-1.3); BLOOD UREA NITROGEN 9 mg/dL (7-20); CALCIUM 9.7 mg/dL (8.4-10.2); CARBON DIOXIDE 27 mmol/L (22-30); CHLORIDE 105 mmol/L (98-107); CREATINE KINASE 83 U/L (30-135); GLUCOSE 87 mg/dL (75-110); POTASSIUM 4.6 mmol/L (3.6-5.0); TOTAL PROTEIN 8.7 g/dL (6.3-8.2)
[2020-01-20 13:49] LABS: CREATINE KINASE MB 0.41 ng/mL (<4.55)
[2020-01-20 13:51] LABS: TROPONIN I < 0.012 ng/mL
[2020-01-20] MEDS ORDERED: HYDRALAZINE HCL 10 MG TABLET PO ONE (17:18)
[2020-01-20] MEDS ORDERED: METOPROLOL TARTRATE 100 MG TABLET PO ONE (17:18)
[2020-01-20] MEDS ORDERED: DIPHENHYDRAMINE HCL 50 MG/ML VIAL ONE (17:19)
[2020-01-20] MEDS ORDERED: METOCLOPRAMIDE HCL INJ/PF 10 MG/2 ML SDV ONE (17:19)
--- NOTE | 2020-01-20 17:22 | ER Document Report ---
ED Cardiac - General Chief Complaint: Chest Pain Stated Complaint: CHEST PAIN/DIZZNESS Time Seen by Provider: 01/20/20 12:06 Primary Care Provider: MICHELLE BENITEZ PA-C [Primary Care Provider] - Follow up as needed YOUSUF MCCARTY MD [EMERITUS] - Follow up tomorrow Mode of Arrival: Wheelchair Information source: Patient Notes: Patient states that she was getting a Cardiolite stress test this morning at 730 whenever she developed chest pain or shortness of breath. Patient also states that at that time she developed a right-sided headache pain. Patient presented to the emergency department after her symptoms started. Patient states that she was getting the stress test that she has had a history of palpitations and syncope and she also has a history of takayasus arteritis. Patient presently denies any chest pain at this time although does complain of continued headache pain. TRAVEL OUTSIDE OF THE [place] IN LAST 30 DAYS: No - HPI Patient complains to provider of: Chest pain, Shortness of breath Chest pain location: Substernal Quality of pain: Sharp Pain level currently: 4 Chest pain precipitating factors: During Cardiolite stress test Cardiac risk factors: Hypertension. denies: Diabetes, Smoker, Hx CA Associated symptoms: Headache. denies: Abdominal pain, Back pain, Neck pain, Syncope Exacerbated by: Other - Headache worse with light and noise Similar symptoms previously: Yes Recently seen / treated by doctor: Yes - Related Data Allergies/Adverse Reactions: amlodipine Allergy (Verified 01/20/20 12:10) lisinopril Allergy (Verified 11/07/19 18:30) prednisone Allergy (Verified 11/07/19 18:30) tramadol [Tramadol] Allergy (Verified 11/07/19 18:30) Past Medical History - General Information source: Patient - Social History Smoking Status: Never Smoker Frequency of alcohol use: None Drug Abuse: None Occupation: None Family History: Reviewed & Not Pertinent - Past Medical History Cardiac Medical History: Reports: Hx Hypertension, Other - takayasus arteritis Neurological Medical History: Reports: Hx Seizures Renal/ Medical History: Reports: Hx Ovarian Cysts. Denies: Hx Peritoneal Dialysis Psychiatric Medical History: Reports: Hx Attention Deficit Hyperactivity Disorder, Hx Bipolar Disorder Past Surgical History: Reports: Hx Gynecologic Surgery - oophorectomy for ovarian cyst - Immunizations Hx Diphtheria, Pertussis, Tetanus Vaccination: No Review of Systems - Review of Systems Constitutional: No symptoms reported. denies: Fever EENT: No symptoms reported Cardiovascular: Chest pain Respiratory: Short of breath. denies: Cough Gastrointestinal: Nausea. denies: Abdominal pain, Vomiting Genitourinary: No symptoms reported Female Genitourinary: No symptoms reported Musculoskeletal: No symptoms reported. denies: Back pain, Neck pain Skin: No symptoms reported. denies: Rash Hematologic/Lymphatic: No symptoms reported Neurological/Psychological: Headaches Physical Exam - Vital signs Vitals: Temp Pulse Resp BP Pulse Ox 98.1 F 84 16 197/75 H 98 01/20/20 11:10 01/20/20 11:10 01/20/20 11:10 01/20/20 11:10 01/20/20 11:10 - General General appearance: Appears well, Alert In distress: None - HEENT Head: Normocephalic, Atraumatic Eyes: Normal Conjunctiva: Normal Pupils: PERRL Nasal: Normal Mouth/Lips: Normal Mucous membranes: Normal Neck: Normal, Supple. No: Lymphadenopathy Notes: No meningismus - Respiratory Respiratory status: No respiratory distress Chest status: Tender Breath sounds: Normal Chest palpation: Normal. No: Tender - Cardiovascular Rhythm: Regular Heart sounds: S1 appreciated, S2 appreciated Murmur: Yes - Abdominal Inspection: Normal Distension: No distension Bowel sounds: Normal Tenderness: Nontender Organomegaly: No organomegaly - Back Back: Normal, Nontender. No: CVA tenderness - Extremities General upper extremity: Normal inspection, Normal strength General lower extremity: Normal inspection, Normal strength - Neurological Neuro grossly intact: Yes Cognition: Normal Orientation: AAOx4 [place] Coma Scale Eye Opening: Spontaneous [place] Coma Scale Verbal: Oriented Shola Coma Scale Motor: Obeys Commands [place] Coma Scale Total: 15 - Psychological Associated symptoms: Normal affect, Normal mood - Skin Skin Temperature: Warm Skin Moisture: Dry Skin Color: Normal Course - Re-evaluation Re-evalutation: 01/20/20 18:04 Patient resting with eyes closed, arouses easily to voice. Patient reports headache pain and chest pain are improved although not completely resolved at this time. 01/20/20 18:[address] Mccarty, patient's laminating machine tender regarding patient's presentation, reviewed patient's pain symptoms as well as diagnostic test results at this time. 01/20/20 18:36 Dr. Bibiana viewed patient's EKG and looked over her Cardiolite stress test imaging, he does not suspect that she has an acute coronary syndrome at this time although does want her to be evaluated for any possible aortic dissection given her history of takayasus. If she is not found to have any dissection he advises outpatient follow-up and no additional testing. 01/20/20 18:37 Spoke with veterinary technician LESLIE who was advised of CTA to evaluate for dissection so that he can adjust the timing bolus of dye. 01/20/20 21:44 The patient presents with headache without signs of NURSING HOME ADMINISTRATOR bleed, stroke, infection, or other serious etiology. The patient is neurologically intact. Given the extremely low risk of these diagnoses further testing and evaluation for these possibilities does not appear to be indicated at this time. Presentation of chest pain in an otherwise well appearing patient. Low clinical suspicion for ACS given exam, EKG without ST elevations or depressions, and negative initial and delta troponin. HEART score less than or equal to 3. PE also seems unlikely given CT results. Patient is CXR without evidence of pneumothorax or pneumonia. No widened mediastinum. Chest pain in a patient without evidence of cardiac or other serious etiology on workup today. I discussed with patient that, based on their age, risk factors and emergency department testing today, the likelihood that their symptoms are related to a heart attack is very low. The patient demonstrates decision making capacity and has verbalized an understanding of these risks to me. Based on this, the patient has chosen to follow-up as an outpatient. Usual chest pain return precautions reviewed. The patient states understanding and agreement with this plan. Consulted with Dr. limon who is agreeable with discharge plan of care at this time. - Vital Signs Vital signs: Temp Pulse Resp BP Pulse Ox 98.3 F 24 L 24 H 188/81 H 98 01/20/20 23:10 01/20/20 23:10 01/20/20 23:10 01/20/20 23:10 01/20/20 23:10 - Laboratory Result Diagrams: 01/20/20 12:47 01/20/20 12:47 Laboratory results interpreted by me: 01/20/20 01/20/20 12:47 12:47 Hgb 11.8 L Hct 35.7 L RDW 14.9 H Total Protein 8.7 H 01/20/20 21:42 Labs- All tests 24 hr 01/20/20 01/20/20 01/20/20 12:47 12:47 12:47 WBC 8.1 RBC 4.23 Hgb 11.8 L Hct 35.7 L MCV 85 MCH 28.0 MCHC 33.1 RDW 14.9 H Plt Count 377 Lymph % (Auto) 30.0 [place] % (Auto) 4.4 Eos % (Auto) 0.5 Baso % (Auto) 0.4 Absolute Neuts (auto) 5.3 Absolute Lymphs (auto) 2.4 Absolute Monos (auto) 0.4 Absolute Eos (auto) 0.0 Absolute Basos (auto) 0.0 Seg Neutrophils % 64.7 Sodium 141.7 Potassium 4.6 Chloride 105 Carbon Dioxide 27 Anion Gap 10 BUN 9 Creatinine 0.69 Est GFR ( Amer) > 60 Est GFR (MDRD) Non-Af > 60 Glucose 87 Calcium 9.7 Magnesium 2.0 Total Bilirubin 0.4 Direct Bilirubin 0.3 Neonat Total Bilirubin Not Reportable Neonat Direct Bilirubin Not Reportable Neonat Indirect Bili Not Reportable AST 22 ALT 11 Alkaline Phosphatase 44 Creatine Kinase 83 CK-MB (CK-2) 0.41 Troponin I < 0.012 Total Protein 8.7 H Albumin 4.7 01/20/20 17:00 WBC RBC Hgb Hct MCV MCH MCHC RDW Plt Count Lymph % (Auto) [place] % (Auto) Eos % (Auto) Baso % (Auto) Absolute Neuts (auto) Absolute Lymphs (auto) Absolute Monos (auto) Absolute Eos (auto) Absolute Basos (auto) Seg Neutrophils % Sodium Potassium Chloride Carbon Dioxide Anion Gap BUN Creatinine Est GFR ( Amer) Est GFR (MDRD) Non-Af Glucose Calcium Magnesium Total Bilirubin Direct Bilirubin Neonat Total Bilirubin Neonat Direct Bilirubin Neonat Indirect Bili AST ALT Alkaline Phosphatase Creatine Kinase CK-MB (CK-2) Troponin I < 0.012 Total Protein Albumin - Diagnostic Test Radiology reviewed: Reports reviewed - EKG Interpretation by Me EKG shows normal: Sinus rhythm Rate: Normal When compared to previous EKG there are: No significant change Additional EKG results interpreted by me: 01/20/20 17:22 Sinus rhythm with a rate of 83, QTC 456, no acute ischemic changes noted Discharge - Discharge Clinical Impression: hx takayasus arteritis Chest pain Qualifiers: Chest pain type: unspecified Qualified Code(s): R07.9 - Chest pain, unspecified Headache Qualifiers: Headache type: unspecified Headache chronicity pattern: unspecified pattern I ntractability: not intractable Qualified Code(s): R51 - Headache Condition: Good Disposition: HOME, SELF-CARE Instructions: Chest Pain of Unclear Cause ([facility]), Headache ([facility]) Additional Instructions: Return immediately for any new or worsening symptoms Followup with your primary care provider, call tomorrow to make a followup appointment You were seen today for chest pain. The exact cause of your pain is unclear. However, based on your cardiac enzyme testing, chest x-ray, and EKG it does not appear that it is from an immediately life-threatening cause at this time. Although your testing here is normal is critical that you follow-up with your primary care physician for continued evaluation of this chest pain and possible stress testing. I recommended you see your physician within the next 24-48 hours to be evaluated for consideration of a stress test. Please return to emergency department immediately if you have worsening of your chest pain, shortness of breath, vomiting, become unable to exert yourself due to pain or difficulty breathing, you pass out, or have any pain that radiates into your arms, jaw, or back. Please also return if you have any additional symptoms that are concerning to you. Prescriptions: Albuterol Sulfate [Proair Hfa Inhalation Aerosol 8.5 gm Mdi] 2 puff IH Q4 PRN #1 mdi PRN Reason: Referrals: MICHELLE BENITEZ PA-C [Primary Care Provider] - Follow up as needed YOUSUF MCCARTY MD [EMERITUS] - Follow up tomorrow
[2020-01-20] MEDS ORDERED: FENTANYL CITRATE INJ/PF 100 MCG/2 ML AMPUL IV ONE (18:04)
--- NOTE | 2020-01-20 18:25 | EKG REPORT ---
SEVERITY:- BORDERLINE ECG - SINUS RHYTHM PROBABLE LEFT ATRIAL ABNORMALITY : Confirmed by: Prabha Lucas 20-Jan-2020 18:24:54
[2020-01-20] MEDS ORDERED: KETOROLAC TROMETHAMINE INJ/PF 30 MG/1 ML SDV IV ONE (21:14)
--- NOTE | 2020-01-20 21:26 | RADIOLOGY REPORT (SQ) ---
CT CHEST ANGIOGRAPHY WITHOUT THEN WITH IV CONTRAST HISTORY: History of Takayasu arteritis. Evaluate for thoracic aortic dissection. COMPARISON: None. TECHNIQUE: CT angiogram of the chest with IV contrast. 3-D MIP images were obtained in coronal and sagittal reconstructions. This exam was performed according to our departmental dose-optimization program, which includes automated exposure control, adjustment of the mA and/or kV according to patient size and/or use of iterative reconstruction technique. FINDINGS: No filling defects are identified in the pulmonary trunk, main left and right pulmonary arteries, or the segmental branches. There is no aortic dissection. The ascending aorta has a maximum diameter of 4.4 cm. The aortic arch has a maximum diameter of 3.3 cm. The descending thoracic aorta has a maximum diameter of 2.8 cm. The thyroid gland is normal. No mediastinal or hilar adenopathy. The heart size is mildly enlarged but without pericardial effusion. No consolidation, pleural effusion, or pneumothorax is identified. There is a mosaic attenuation pattern throughout the lungs. The visualized upper abdomen demonstrates no acute findings. No acute osseous findings are seen. IMPRESSION: 1. No thoracic aortic dissection. 2. Ectasia of the ascending aorta but without aneurysmal dilatation. 3. No acute PE. 4. Mosaic attenuation pattern throughout the lungs which may represent sequela of small vessel disease.
[2020-01-20 22:27] VITALS: BP 188/81
== END 2020-01-20 23:09 | disposition home or self-care (01) ==
LOC: ER 10:48
DX: M31.4 Aortic arch syndrome [Takayasu] (principal); R07.9 Chest pain, unspecified; R51 Headache; R42 Dizziness and giddiness; R06.02 Shortness of breath; R11.0 Nausea; Z88.8 Allergy status to other drugs, medicaments and biological substances; I10 Essential (primary) hypertension
CPT/HCPCS: 93005; 99285; 96361; 96374; 96375; 36415; 82553; 82550; 83735; 85025; 80053; 84484; 71045; 71275; 93010; J1200; J3010; J3490 ×2; J1885; J2765; J7120

== ENCOUNTER → 2020-01-20 | Outpatient (CLI) | payer MEDICAID ==
[~2020-01-20] MED LIST: AMINOPHYLLINE INJ/PF 250 MG/10 ML SDV IV ONE; REGADENOSON INJ 0.4 MG/5 ML DISP.SYRIN IV ONE
--- NOTE | 2020-01-20 19:04 | DRAGON STRESS TEST REPORT ---
INTRAVENOUS LEXISCAN CARDIOLITE STRESS TEST USING SINGLE PHOTON EMMISION COMPUTERIZED TOMOGRAPHIC. DATE OF PROCEDURE: January 20, 2020. INDICATION : Chest pain CARDIAC RISK FACTORS: None reported by the patient RESTING EKG: Sinus rhythm, without any baseline ST-T wave changes. STRESS EKG: No significant ST segment changes noted with LexiScan bolus REASON FOR TERMINATION: Protocol. PROCEDURE REPORT: Baseline heart rate 85 beats per minute with blood pressure of 150/49. Patient had no significant complaints. Patient was bolused with Lexiscan 0.4 mg intravenously followed by saline bolus. Heart rate at 2 minutes post bolus 100 with a blood pressure of 140/50. 3 minutes post bolus heart rate 98 with blood pressure of 161/88. No significant EKG changes were noted. Patient had no significant complaints during the procedure or postprocedure. CONCLUSIONS: Normal EKG and hemodynamic response to IV LexiScan. NUCLEAR DATA: At rest the patient was given 12.66 millicuries of technetium 99 sestamibi injected intravenously. As per protocol rest gated SPECT images were obtained. On day of stress test, the patient was given intravenous LexiScan at a dose of 0.4 mg in 5 mL intravenously, followed by flush with normal saline. Subsequently the stress dose of 36.6 millicuries of technetium 99 sestamibi was injected intravenously. As per protocol stress gated images were obtained. NUCLEAR INTERPRETATION: Both raw and processed data were used for interpretation. Visual, qualitative, computer-generated quantitative data was used. There was good myocardial uptake of technetium compound. Motion artifact and soft tissue attenuations were noted. Increased visceral uptake was noted, discussed problem with interpretation of perfusion of the inferior wall. No definitive areas of transient perfusion defect noted except for mild decreased uptake in the inferior wall in stress imaging however there were no corresponding wall motion abnormalities therefore likely to be a artifactual finding, No definitive areas of fixed perfusion defect or scars noted. EKG gated imaging showed LV EF at 55%, rest and stress gated EF similar visually. T. I D. ratio was 1.22. Lung heart ratio noted to be within normal limits 0.29. No significant extracardiac and abnormal radiotracer activities were noted. RV free wall uptake was noted to be WNL. IMPRESSION: Also refer to comments under nuclear interpretation. Also test results needs to be interpreted in the context of pretest probability. 1. No definitive areas of transient perfusion defect noted except for borderline decreased uptake in the inferior wall in stress imaging, SDS of 2 but no corresponding wall motion abnormalities therefore mostly artifactual. Clinical correlation is requested. 2. There is no definitive scintigraphic evidence of myocardial infarction/scar. 3. EKG gated imaging shows left ventricular ejection fraction of approx. 55%. No regional wall motion abnormalities are noted. 4. Clinical correlation requested as worse disease and or balanced ischemia could be missed. In approximately 10% of the cases Lexiscan may not cause adequate vasodilatory stress. RECOMMENDATIONS: Aggressive risk factor modification and medical management. Further evaluation may be needed if continued symptoms or other high risk indicators are noted on clinical evaluation. Stress echocardiogram should be considered in this young lady if she is able to walk on the treadmill. Close cardiology follow-up is also recommended. Clinical correlation with echocardiogram derived ejection fraction. Inability to exercise by itself can lead to increased cardiovascular event risks. Dr. Gee Lucas. MRCP Board certified in cardiology and sleep medicine. Board certified in nuclear cardiology, adult echocardiography. HEIDY
== END ==
LOC: RAD 07:32
PROVIDERS: ATTEND Physician Assistant
DX: M31.4 Aortic arch syndrome [Takayasu] (principal); R07.9 Chest pain, unspecified; R00.2 Palpitations
CPT/HCPCS: 93017; 78452; A9500; J2785; J0280; Q9969

== ENCOUNTER → 2020-06-02 | Outpatient (CLI) | payer BC, MEDICAID ==
[2020-06-02 17:25] LABS: ANION GAP 9 (5-19); BLOOD UREA NITROGEN 11 mg/dL (7-20); CALCIUM 9.5 mg/dL (8.4-10.2); CARBON DIOXIDE 29 mmol/L (22-30); CHLORIDE 100 mmol/L (98-107); GLUCOSE 105 mg/dL (75-110); POTASSIUM 3.8 mmol/L (3.6-5.0)
== END ==
LOC: OD 15:49
PROVIDERS: ATTEND Physician Assistant
DX: R60.9 Edema, unspecified (principal); I10 Essential (primary) hypertension
CPT/HCPCS: 36415; 80048